=== PATIENT | female | born 1935 | race Hispanic/Latino ===

== ENCOUNTER 2017-04-17 07:53 | Observation (INO) | payer MEDICARE, MEDICAID ==
[~2017-04-17] VITALS: Ht 165.1 cm; Wt 58.0 kg
[~2017-04-17 07:53] MED LIST: ALBUTEROL SUL0.083 % IN; ALBUTEROL2.5 MG/3 M IN; ASA LO-DOSE81 MG OR; ASPIRIN CHEWABL81 MG PO; CIPRO500 MG PO; CIPROFLOXACN500 MG PO; COUMADIN2 MG PO; DARVOCET-N 100100 MG OR; DOXYCYCL HYC100 M3 PO; KEFLEX500 MG PO; LEVAQUIN500 MG PO; LORTAB 5 OR; LORTAB 5/3255 MG PO; MEDDOSEPAK PO; METFORMIN500 M2 PO; PREDNISONE20 MG PO; PRILOSEC OTC20 MG OR; PROAIR HFA IN; PYRIDIUM200 MG PO; ROBITUSS12 OR; ROBITUSSIN AC10 ML PO; ULTRAM50 M1 OR; ULTRAM50 M1 PO; ULTRAM50 MG PO; VENTOLIN HF1 IN; VENTOLIN HFA IN; VICODIN ES1 TAB OR; VICOPROFEN OR; VITAMIN A OR; VITAMIN C500 M1 OR; ZITHROMAX250 MG OR; ZITHROMAX250 MG PO; ZOFRAN ODT4 MG PO; ZPAK PO; [UNRECOGNIZED DRUG - CODE] OR
[2017-04-17 08:46] LABS: URINE BILIRUBIN - DIPSTICK NEGATIVE (NEGATIVE); URINE BLOOD DIPSTICK NEGATIVE (NEGATIVE); URINE COLOR YELLOW; URINE GLUCOSE - DIPSTICK 100 mg/dL (NEGATIVE); URINE KETONE NEGATIVE (NEGATIVE); URINE LEUK ESTERASE NEGATIVE (NEGATIVE); URINE NITRITE - DIPSTICK NEGATIVE (Negative); URINE PROTEIN - DIPSTICK NEGATIVE (NEG-TRACE); URINE SPECIFIC GRAVITY 1.015; URINE UROBILINOGEN - DIPSTICK 0.2 E.U./dL (0.2)
[2017-04-17 08:46] LABS: HEMOGLOBIN 10.3 g/dl (12.0-16.0); IMMATURE GRANULOCYTES 0.6 % (0.0-1.0); MEAN CELL VOLUME 92.2 fL CALC (80.0-100.0); MEAN CORPUSCULAR HGB 28.8 pG CALC (26.0-32.0); MEAN CORPUSCULAR HGB CONC 31.2 g/L CALC (32.0-36.0); NEUT# 4.2 thou/uL (2.00-7.15); RED BLOOD COUNT 3.58 mill/uL (4.20-5.60); RED CELL DISTRI WIDTH 13.6 % (11.5-15.5)
[2017-04-17 09:12] LABS: ALBUMIN 4.2 g/dL (3.2-5.0); ALKALINE PHOSPHATASE 98 u/l (38-126); ANION GAP 15 (6-22 (CALC)); BUN 11 mg/dL (8-23); BUN/CREATININE RATIO 16 (12-20 (CALC)); CALCIUM 9.7 mg/dL (8.4-10.2); CARBON DIOXIDE 26 mmol/l (22-30); CHLORIDE 107 mmol/l (95-108); CREATININE 0.7 mg/dL (0.5-1.0); GFR > 60 ML/MIN (>=60 (CALC)); GFR FOR AFR.AMER. > 60 ML/MIN (>=60 (CALC)); GLUCOSE 158 mg/dL (82-115); LIPASE 71 u/l (23-300); POTASSIUM 3.8 mmol/l (3.5-5.1); SGOT/AST 30 u/l (9-36); SGPT/ALT 30 u/l (11-66); SODIUM 144 mmol/l (137-146); TOTAL PROTEIN 7.4 g/dL (6.3-8.2)
[2017-04-17 09:56] LABS: URINE CLARITY CLEAR
[2017-04-17 11:26] LABS: INFLUENZA A NONE DETECTED (NONE DETECT); INFLUENZA B NONE DETECTED (NONE DETECT)
[2017-04-17] MEDS ORDERED: COUMADIN3 MG PO (13:57)
[2017-04-17] MEDS ORDERED: ASPIRIN LOW DOS81 MG PO (13:58)
[2017-04-17] MEDS ORDERED: ALBUTEROL SUL0.083 % IN (13:59)
[2017-04-17] MEDS ORDERED: TOPROL XL25 MG PO (13:59)
[2017-04-17] MEDS ORDERED: LASIX 20 MG TAB20 MG PO (14:00)
[2017-04-17] MEDS ORDERED: PROAIR HFA108 MCG/AC (14:00)
[2017-04-17] MEDS ORDERED: PROLIA60 MG/ML SC (14:01)
[2017-04-17] MEDS ORDERED: OMEPRAZOLE10 MG PO (14:01)
[2017-04-17] MEDS ORDERED: METFORMIN HCL750 MG PO (14:02)
[2017-04-17] MEDS ORDERED: ATORVASTATIN CA10 MG PO (14:02)
[2017-04-17] MEDS ORDERED: LOSARTAN POT50 MG PO (14:02)
[2017-04-17] MEDS ORDERED: DOXYCYCL HYC100 MG PO (14:03)
[2017-04-17] MEDS ORDERED: HYDROCO/APAP1 TA9 PO (14:03)
[2017-04-17 16:11] VITALS: BP 142/67
[2017-04-17 18:25] VITALS: BP 122/66
[2017-04-18 04:20] VITALS: BP 127/72
[2017-04-18 07:19] LABS: HEMATOCRIT 33.8 % (37.0-47.0); HEMOGLOBIN 10.5 g/dl (12.0-16.0); MEAN CELL VOLUME 91.6 fL CALC (80.0-100.0); MEAN CORPUSCULAR HGB 28.5 pG CALC (26.0-32.0); MEAN CORPUSCULAR HGB CONC 31.1 g/L CALC (32.0-36.0); RED BLOOD COUNT 3.69 mill/uL (4.20-5.60); RED CELL DISTRI WIDTH 13.4 % (11.5-15.5)
[2017-04-18 07:36] LABS: ANION GAP 15 (6-22 (CALC)); BUN 15 mg/dL (8-23); BUN/CREATININE RATIO 21 (12-20 (CALC)); CALCIUM 9.5 mg/dL (8.4-10.2); CARBON DIOXIDE 29 mmol/l (22-30); CHLORIDE 102 mmol/l (95-108); CREATININE 0.7 mg/dL (0.5-1.0); GFR > 60 ML/MIN (>=60 (CALC)); GFR FOR AFR.AMER. > 60 ML/MIN (>=60 (CALC)); GLUCOSE 171 mg/dL (82-115); POTASSIUM 3.9 mmol/l (3.5-5.1); SODIUM 143 mmol/l (137-146)
[2017-04-18 07:52] LABS: INTERNATIONAL NORMALIZED RATIO 1.4 RATIO (0.7-1.3); PROTHROMBIN TIME 15.7 SECONDS (9.0-12.5)
[2017-04-18 08:21] VITALS: BP 147/61
[2017-04-18 14:50] VITALS: BP 117/66
[2017-04-18] MEDS ORDERED: GUAIFENESI100 MG/51 PO (15:20)
[2017-04-18] MEDS ORDERED: PREDNISONE10 MG PO (15:20)
== END 2017-04-18 17:22 | disposition home or self-care (01) ==
LOC: ED 07:53 → ED-I 13:15 → ED 13:41 → MS2 13:42
PROVIDERS: Emergency Medicine; ADMIT Internal Medicine; ATTEND Internal Medicine
DX: J44.0 Chronic obstructive pulmonary disease with (acute) lower respiratory infection (principal); J20.9 Acute bronchitis, unspecified; I12.9 Hypertensive chronic kidney disease with stage 1 through stage 4 chronic kidney disease, or unspecified chronic kidney disease; E11.22 Type 2 diabetes mellitus with diabetic chronic kidney disease; N18.9 Chronic kidney disease, unspecified; I25.10 Atherosclerotic heart disease of native coronary artery without angina pectoris; I48.91 Unspecified atrial fibrillation; Z79.01 Long term (current) use of anticoagulants; Z95.1 Presence of aortocoronary bypass graft; Z86.73 Personal history of transient ischemic attack (TIA), and cerebral infarction without residual deficits

== ENCOUNTER 2017-05-09 11:01 | Emergency (ER) | payer MEDICARE, MEDICAID ==
[~2017-05-09] VITALS: Ht 165.1 cm; Wt 50.0 kg
[~2017-05-09 11:01] MED LIST changes: +ASPIRIN LOW DOS81 MG PO; +ATORVASTATIN CA10 MG PO; +COUMADIN3 MG PO; +DOXYCYCL HYC100 MG PO; +GUAIFENESI100 MG/51 PO; +HYDROCO/APAP1 TA9 PO; +LASIX 20 MG TAB20 MG PO; +LOSARTAN POT50 MG PO; +METFORMIN HCL750 MG PO; +OMEPRAZOLE10 MG PO; +PREDNISONE10 MG PO; +PROAIR HFA108 MCG/AC IN; +PROLIA60 MG/ML SC; +TOPROL XL25 MG PO
[2017-05-09] MEDS ORDERED: COUMADIN1 MG PO (11:37)
[2017-05-09] MEDS ORDERED: LORTAB 1010 MG PO (12:56)
[2017-05-09] MEDS ORDERED: FLEXERIL PO (12:56)
[2017-05-09 13:00] VITALS: BP 122/78
== END 2017-05-09 13:00 | disposition home or self-care (01) ==
LOC: ED 11:01
DX: M47.817 Spondylosis without myelopathy or radiculopathy, lumbosacral region (principal); M54.31 Sciatica, right side

== ENCOUNTER 2017-06-24 17:18 | Emergency (ER) | payer MEDICARE, MEDICAID ==
[~2017-06-24] VITALS: Ht 165.1 cm; Wt 62.7 kg
[~2017-06-24 17:18] MED LIST changes: +COUMADIN1 MG PO; +FLEXERIL PO; +LORTAB 1010 MG PO
[2017-06-24] MEDS ORDERED: IBUPROFEN600 MG PO (19:57)
[2017-06-24 20:19] VITALS: BP 123/51
== END 2017-06-24 20:20 | disposition home or self-care (01) ==
LOC: ED 17:18
DX: S22.31XA Fracture of one rib, right side, initial encounter for closed fracture (principal); S80.211A Abrasion, right knee, initial encounter; E11.22 Type 2 diabetes mellitus with diabetic chronic kidney disease; I12.9 Hypertensive chronic kidney disease with stage 1 through stage 4 chronic kidney disease, or unspecified chronic kidney disease; N18.9 Chronic kidney disease, unspecified; W01.0XXA Fall on same level from slipping, tripping and stumbling without subsequent striking against object, initial encounter; Y93.E2 Activity, laundry; Y92.89 Other specified places as the place of occurrence of the external cause; Z86.73 Personal history of transient ischemic attack (TIA), and cerebral infarction without residual deficits; Z95.1 Presence of aortocoronary bypass graft

== ENCOUNTER 2017-10-20 09:58 | Observation (INO) | payer MEDICARE, MEDICAID ==
[~2017-10-20] VITALS: Ht 165.1 cm; Wt 51.9 kg
[~2017-10-20 09:58] MED LIST changes: +IBUPROFEN600 MG PO
[2017-10-20 10:46] LABS: HEMATOCRIT 31.1 % (37.0-47.0); HEMOGLOBIN 9.5 g/dl (12.0-16.0); IMMATURE GRANULOCYTES 0.2 % (0.0-1.0); MEAN CELL VOLUME 92.3 fL CALC (80.0-100.0); MEAN CORPUSCULAR HGB 28.2 pG CALC (26.0-32.0); MEAN CORPUSCULAR HGB CONC 30.5 g/L CALC (32.0-36.0); NEUT# 4.17 thou/uL (2.00-7.15); RED BLOOD COUNT 3.37 mill/uL (4.20-5.60); RED CELL DISTRI WIDTH 13.6 % (11.5-15.5)
[2017-10-20] MEDS ORDERED: NORCO1 TA1 PO (10:56)
[2017-10-20 11:03] LABS: ALBUMIN 4.4 g/dL (3.2-5.0); ALKALINE PHOSPHATASE 114 u/l (38-126); ANION GAP 14 (6-22 (CALC)); BILIRUBIN, TOTAL 0.9 mg/dL (0.0-1.4); BUN 16 mg/dL (8-23); BUN/CREATININE RATIO 26 (12-20 (CALC)); CARBON DIOXIDE 33 mmol/l (22-30); CHLORIDE 102 mmol/l (95-108); CREATININE 0.6 mg/dL (0.5-1.0); GFR > 60 ML/MIN (>=60 (CALC)); GFR FOR AFR.AMER. > 60 ML/MIN (>=60 (CALC)); SGOT/AST 26 u/l (9-36); SGPT/ALT 34 u/l (11-66); SODIUM 145 mmol/l (137-146); TOTAL PROTEIN 8.3 g/dL (6.3-8.2)
[2017-10-20 11:15] LABS: MYOGLOBIN 36 ng/mL (0 - 62)
[2017-10-20 11:34] LABS: URINE BILIRUBIN - DIPSTICK NEGATIVE (NEGATIVE); URINE BLOOD DIPSTICK MODERATE (NEGATIVE); URINE COLOR YELLOW; URINE GLUCOSE - DIPSTICK NEGATIVE (NEGATIVE); URINE KETONE NEGATIVE (NEGATIVE); URINE LEUK ESTERASE NEGATIVE (NEGATIVE); URINE PROTEIN - DIPSTICK NEGATIVE (NEG-TRACE); URINE SPECIFIC GRAVITY <=1.005; URINE UROBILINOGEN - DIPSTICK 0.2 E.U./dL (0.2)
[2017-10-20 11:35] LABS: URINE CLARITY CLEAR
[2017-10-20 11:42] LABS: URINE NITRITE - DIPSTICK NEGATIVE (Negative)
[2017-10-20 13:26] LABS: PROTHROMBIN TIME 22.2 SECONDS (9.0-12.5)
[2017-10-20 14:26] VITALS: BP 152/65
[2017-10-20 18:37] LABS: INTERNATIONAL NORMALIZED RATIO 1.9 RATIO (0.7-1.3); PROTHROMBIN TIME 21.7 SECONDS (9.0-12.5)
[2017-10-20 19:15] VITALS: BP 122/55
[2017-10-20] MEDS ORDERED: PROLIA60 MG/ML IM (20:05)
[2017-10-21 00:50] VITALS: BP 137/68
[2017-10-21 04:12] VITALS: BP 121/63
[2017-10-21 04:49] LABS: HEMATOCRIT 32.9 % (37.0-47.0); HEMOGLOBIN 10.2 g/dl (12.0-16.0); IMMATURE GRANULOCYTES 0.4 % (0.0-1.0); MEAN CELL VOLUME 90.4 fL CALC (80.0-100.0); NEUT# 4.13 thou/uL (2.00-7.15); RED BLOOD COUNT 3.64 mill/uL (4.20-5.60); RED CELL DISTRI WIDTH 13.5 % (11.5-15.5)
[2017-10-21 04:52] LABS: ANION GAP 11 (6-22 (CALC)); BUN 18 mg/dL (8-23); BUN/CREATININE RATIO 26 (12-20 (CALC)); CARBON DIOXIDE 35 mmol/l (22-30); CHLORIDE 99 mmol/l (95-108); CREATININE 0.7 mg/dL (0.5-1.0); GFR > 60 ML/MIN (>=60 (CALC)); GFR FOR AFR.AMER. > 60 ML/MIN (>=60 (CALC)); MAGNESIUM 1.9 mg/dL (1.6-2.3); SODIUM 141 mmol/l (137-146)
[2017-10-21 08:00] VITALS: BP 126/54
[2017-10-21 11:17] VITALS: BP 140/63
[2017-10-21 15:04] VITALS: BP 128/55
[2017-10-21 19:25] VITALS: BP 120/64
[2017-10-22 00:07] VITALS: BP 125/55
[2017-10-22 04:06] VITALS: BP 107/51
[2017-10-22 04:51] LABS: HEMATOCRIT 36.2 % (37.0-47.0); HEMOGLOBIN 11.3 g/dl (12.0-16.0); MEAN CELL VOLUME 88.9 fL CALC (80.0-100.0); MEAN CORPUSCULAR HGB 27.8 pG CALC (26.0-32.0); MEAN CORPUSCULAR HGB CONC 31.2 g/L CALC (32.0-36.0); RED BLOOD COUNT 4.07 mill/uL (4.20-5.60); RED CELL DISTRI WIDTH 13.5 % (11.5-15.5)
[2017-10-22 05:10] LABS: ANION GAP 16 (6-22 (CALC)); BUN 27 mg/dL (8-23); BUN/CREATININE RATIO 37 (12-20 (CALC)); CARBON DIOXIDE 33 mmol/l (22-30); CHLORIDE 97 mmol/l (95-108); CREATININE 0.7 mg/dL (0.5-1.0); GFR > 60 ML/MIN (>=60 (CALC)); GFR FOR AFR.AMER. > 60 ML/MIN (>=60 (CALC)); POTASSIUM 3.9 mmol/l (3.5-5.1); SODIUM 142 mmol/l (137-146)
[2017-10-22 05:11] LABS: INTERNATIONAL NORMALIZED RATIO 1.6 RATIO (0.7-1.3); PROTHROMBIN TIME 18.1 SECONDS (9.0-12.5)
[2017-10-22 08:03] VITALS: BP 122/63
[2017-10-22 11:10] VITALS: BP 107/50
== END 2017-10-22 13:44 | disposition home or self-care (01) ==
LOC: ED 09:58 → ED-I 12:30 → ED 13:32 → MS2 13:33
PROVIDERS: Emergency Medicine; Nurse Practitioner Family; ADMIT Internal Medicine; ATTEND Internal Medicine
PROC: 3E0234Z Introduction of Serum, Toxoid and Vaccine into Muscle, Percutaneous Approach (ICD-10-PCS; principal; 2017-10-22)
DX: I11.0 Hypertensive heart disease with heart failure (principal); I50.9 Heart failure, unspecified; J44.1 Chronic obstructive pulmonary disease with (acute) exacerbation; E11.9 Type 2 diabetes mellitus without complications; I48.0 Paroxysmal atrial fibrillation; R09.02 Hypoxemia; R06.89 Other abnormalities of breathing; I25.10 Atherosclerotic heart disease of native coronary artery without angina pectoris; D64.9 Anemia, unspecified; Z95.1 Presence of aortocoronary bypass graft; Z86.73 Personal history of transient ischemic attack (TIA), and cerebral infarction without residual deficits; Z95.2 Presence of prosthetic heart valve; Z79.01 Long term (current) use of anticoagulants; E78.5 Hyperlipidemia, unspecified; Z87.891 Personal history of nicotine dependence; Z23 Encounter for immunization

== ENCOUNTER → 2018-06-26 | Outpatient (REF) | payer MEDICARE, MEDICAID ==
[~2018-06-26] MED LIST changes: +NORCO1 TA1 PO; +PROLIA60 MG/ML IM
[2018-06-26 10:50] LABS: HEMATOCRIT 29.1 % (37.0-47.0); HEMOGLOBIN 8.4 g/dl (12.0-16.0); IMMATURE GRANULOCYTES 0.4 % (0.0-5.0); MEAN CELL VOLUME 88.7 fL CALC (80.0-100.0); MEAN CORPUSCULAR HGB 25.6 pG CALC (26.0-32.0); MEAN CORPUSCULAR HGB CONC 28.9 g/L CALC (32.0-36.0); NEUT# 3.06 thou/uL (2.00-7.15); RED BLOOD COUNT 3.28 mill/uL (4.20-5.60); RED CELL DISTRI WIDTH 15.9 % (11.5-15.5)
[2018-06-26 11:02] LABS: ALBUMIN 4.1 g/dL (3.2-5.0); ALKALINE PHOSPHATASE 78 u/l (38-126); ANION GAP 12 (6-22 (CALC)); BILIRUBIN, TOTAL 0.6 mg/dL (0.0-1.4); BUN 18 mg/dL (8-23); BUN/CREATININE RATIO 21 (12-20 (CALC)); CALCULATED LDLCHOLESTEROL 53 mg/dL (62-129 (CALC)); CARBON DIOXIDE 27 mmol/l (22-30); CHLORIDE 109 mmol/l (95-108); CHOLESTEROL HDL RATIO 2.3 (<4.4 (CALC)); CREATININE 0.8 mg/dL (0.5-1.0); GFR > 60 ML/MIN (>=60 (CALC)); GFR FOR AFR.AMER. > 60 ML/MIN (>=60 (CALC)); HDL CHOLESTEROL 59 mg/dL (>=40); POTASSIUM 4.4 mmol/l (3.5-5.1); SGOT/AST 19 u/l (9-36); SODIUM 143 mmol/l (137-146); TOTAL CHOLESTEROL 133 mg/dl (0-199); TOTAL PROTEIN 7.1 g/dL (6.3-8.2); TOTAL TRIGLYCERIDES 103 mg/dl (30-149); VLDL CHOLESTROL 21 mg/dl (0-48 (CALC))
[2018-06-26 11:28] LABS: TSH, 3RD GENERATION 1.75 uIU/mL (0.47 - 4.68)
== END | disposition home or self-care (01) ==
LOC: LAB 09:09
PROVIDERS: ATTEND Internal Medicine
DX: E11.29 Type 2 diabetes mellitus with other diabetic kidney complication (principal); I51.9 Heart disease, unspecified; D63.8 Anemia in other chronic diseases classified elsewhere

== ENCOUNTER 2018-10-12 08:05 | Inpatient (IN) | payer MEDICARE, MEDICAID ==
[~2018-10-12] VITALS: Ht 165.1 cm; Wt 56.0 kg
[2018-10-12] VITALS (13 sets, daily range): BP systolic 87–136; BP diastolic 49–92
--- NOTE | 2018-10-12 08:05 | NUR ---
PT TO ROOM VIA WHEELCHAIR FOR BEDSIDE TRIAGE.
--- NOTE | 2018-10-12 08:28 | NUR ---
AT BEDSIDE. VERBAL ORDER TO GIVE 10 MG OF CARDIZEM IV AT THIS TIME. PATIENT HR 90 AFTER GIVING 10 MG OF CARDIZEM IV. VERBAL ORDER FROM TO HOLD ADDITIONAL 10 MG OF CARDIZEM IV. PATIENT TOLERATED WELL. WILL CONTINUE TO MONITOR.
[2018-10-12 08:29] LABS: HEMATOCRIT 35.7 % (37.0-47.0); HEMOGLOBIN 10.7 g/dl (12.0-16.0); IMMATURE GRANULOCYTES 0.4 % (0.0-5.0); MEAN CELL VOLUME 87.1 fL CALC (80.0-100.0); MEAN CORPUSCULAR HGB 26.1 pG CALC (26.0-32.0); NEUT# 3.86 thou/uL (2.00-7.15); RED BLOOD COUNT 4.1 mill/uL (4.20-5.60); RED CELL DISTRI WIDTH 20.4 % (11.5-15.5)
[2018-10-12 08:45] LABS: INTERNATIONAL NORMALIZED RATIO 2.9 RATIO (0.7-1.3); PROTHROMBIN TIME 30.2 SECONDS (9.0-12.5)
[2018-10-12 08:48] LABS: ANION GAP 13 (6-22 (CALC)); BUN 21 mg/dL (8-23); BUN/CREATININE RATIO 21 (12-20 (CALC)); CARBON DIOXIDE 26 mmol/l (22-30); CHLORIDE 108 mmol/l (95-108); GFR 53 ML/MIN (>=60 (CALC)); GFR FOR AFR.AMER. > 60 ML/MIN (>=60 (CALC)); SODIUM 143 mmol/l (137-146); TOTAL PROTEIN 7.2 g/dL (6.3-8.2)
[2018-10-12 08:59] LABS: MYOGLOBIN 58 ng/mL (0 - 62)
[2018-10-12 09:03] LABS: ALKALINE PHOSPHATASE 121 u/l (38-126); BILIRUBIN, TOTAL 1.5 mg/dL (0.0-1.4); SGOT/AST 38 u/l (9-36)
--- NOTE | 2018-10-12 09:25 | NUR ---
MEDREC COMPLETED WITH MEDICATION LIST PROVIDED BY PATIENT.
[2018-10-12] MEDS ORDERED: PROAIR HFA IN (09:30)
--- NOTE | 2018-10-12 09:30 | NUR ---
AT BEDSIDE TO DISCUSS RESULTS AND ADMIT.
[2018-10-12] MEDS ORDERED: DOXYCYCL HYC100 MG PO (09:32)
--- NOTE | 2018-10-12 09:50 | NUR ---
BEDSIDE REPORT GIVEN TO ROBBY RAYA. CARE RELINQUISHED.
--- NOTE | 2018-10-12 12:43 | NUR ---
PT ADMITTED TO ICU BED 5 VIA STRETCHER FROM E.. PT ABLE TO STAND AND TRANSFER FROM STRETCHER TO BED WITH MIN ASSIST, ADMISSION ASSESSMENT COMPLETED SEE INTERVENTIONS, IV ACCESSES NOTED IN L FA AND LAC, CARDIZEM GTT INFUSING IN LAC AT 2.5 MG/HR WITHOUT INCIDENT, VS STABLE PT AFEBRILE, SKIN WARM DRY AND INTACT WITH NO BREAKDOWN NOTED, PT WEARING BRIEF, DAUGHTER STATES SHE WEARS ONE ALL THE TIME RELATED TO FREQUENCY AND INCONTINENCE. NO EDEMA NOTED LUNGS DIMINSHED WITH WHEEZES NOTED IN BASES, NO COUGH HEARD. ABD SOFT AND BS ACTIVE WITH LAST BM THIS AM PER PT. COMFORT MEASURES PROVIDED, ALL MONITORING EQUIPMENT AXPLAINED PRIOR TO APPLICATION, SAFETY MEASURES INTRODUCED, WILL CONTINUE TO MONITOR, CALL RAMIREZ WITHIN REACH
--- NOTE | 2018-10-12 12:53 | NUR ---
PT TAKEN TO ICU-5 WITHOUT INCIDENT.
--- NOTE | 2018-10-12 13:45 | NUR ---
PT RESTING IN BEDM WATCHING TELEVISION, EASILY VISIBLE FROM NURSES STATION FOR SAFETY, WILL CONTINUE TO MONITOR.
--- NOTE | 2018-10-12 14:38 | NUR ---
PT SATS MAINTAINED 88-92 ON ROOM AIR, PER DAUGHTER PT WEARS O2 AT HOME AT HS, AND HERE LATELY HAS BEEN WEARING IT MORE OFTEN RELATED TO SOB. AT THIS TIME PLACED ON NC 2L WITH SATS QUICKLY IMPROVING TO 95-97%, WILL CONTINUE TO MONITOR.
--- NOTE | 2018-10-12 15:28 | NUR ---
AT BEDSIDE AND DISCUSSED PLAN OF CARE. ALL QUESTIONS ANSWERED.
--- NOTE | 2018-10-12 16:25 | NUR ---
daughter at bedside assist pt with brief change, bathroom visit and danyelle care. Pt HR increases with minimai exertion to 140-150's but returns to 90-110 with minimal rest. Call mccloud within reach.
--- NOTE | 2018-10-12 17:30 | NUR ---
insulin coverage given as ordered, pt offers no complaints. Angelic Frias APRN here to consult for as ordered. Meal set up assist provided, tele reading afib rate controlled, no complaints of pain or discomfort at this time, will continue to monitor.
--- NOTE | 2018-10-12 18:55 | NUR ---
PATIENT ASSISTED STANDBY TO RESTROOM. NO DIFFICULTY WALKING NOTED, URINE CLEAR AND YELLOW. ON 2 L/MIN NC. FULL NURSING ASSESSMENT COMPLETED. LAC 22 AND LFA 20 IV'S ARE INTACT AND FLUSHING. WEARS A DISPOSABLE BRIEF FOR STRESS INCONTINENCE. AFIB IN TELE, HR RAISES UP WHEN SHE IS WALKING BUT DOES NOT SUSTAIN. ALERT AND ORIENTED X4. [place], WEARS HEARING AIDS, HAS R-EAR ON AND L-EAR IS CHARGING BY SINK. EDUCATED EMPLOYMENT INTERVIEWER LIGHT SYSTEM. EDUCATED ON MEDICATIONS FOR TONIGHT, POC. REPORTS NO PAIN AT THIS TIME. AFEBRILE. CALL LIGHT WITHIN REACH.
--- NOTE | 2018-10-12 19:50 | NUR ---
DAUGHTER AT BEDSIDE TO DROP OFF PATIENT'S PHONE EMERGENCY TECHNICIAN.
--- NOTE | 2018-10-12 21:10 | NUR ---
RT IN ROOM FOR BR. TX. PATIENT'S BS CHECKED 214. CALL LIGHT WITHIN REACH.
--- NOTE | 2018-10-12 23:20 | NUR ---
PATIENT ASSISTED STANDBY TO RESTROOM. SAFELY TRANSFERRED BACK TO BED. ON 2L/MIN NC. PATIENT'S HR RAISES UP WITH EXERTION, ONCE SHE IS BACK IN BED AND NOT MOVING HR W/I NORMAL RANGES. CALL LIGHTN W/I REACH.
[2018-10-13] VITALS (59 sets, daily range): BP systolic 93–169; BP diastolic 50–95
--- NOTE | 2018-10-13 | NUR ---
PATIENT RESTING WITH EYES CLOSED. NO ACUTE DISTRESS SHOWN. ON NC 2 L/MIN. CALL LIGHT W/I REACH.
--- NOTE | 2018-10-13 00:26 | NUR ---
ORDERS TO CHECK BS EVERY HOUR, CLARIFIED WITH DR RODRIGUEZ AND ONLY WANTS ACHS.
--- NOTE | 2018-10-13 02:15 | NUR ---
PATIENT AWAKE, REQUESTS SOMETHING TO EAT, UNSALTED CRACKERS GIVEN. NOW WATCHING TV. NO ACUTE DISTRESS NOTED. CALL LIGHT W/I REACH.
[2018-10-13 05:34] LABS: HEMATOCRIT 32.5 % (37.0-47.0); IMMATURE GRANULOCYTES 0.2 % (0.0-5.0); MEAN CELL VOLUME 87.4 fL CALC (80.0-100.0); MEAN CORPUSCULAR HGB 26.9 pG CALC (26.0-32.0); MEAN CORPUSCULAR HGB CONC 30.8 g/L CALC (32.0-36.0); NEUT# 3.44 thou/uL (2.00-7.15); RED BLOOD COUNT 3.72 mill/uL (4.20-5.60); RED CELL DISTRI WIDTH 20.3 % (11.5-15.5)
[2018-10-13 05:46] LABS: INTERNATIONAL NORMALIZED RATIO 2.7 RATIO (0.7-1.3); PROTHROMBIN TIME 27.6 SECONDS (9.0-12.5)
[2018-10-13 05:56] LABS: ALBUMIN 3.6 g/dL (3.2-5.0); ALKALINE PHOSPHATASE 104 u/l (38-126); AMYLASE 62 u/l (30-110); ANION GAP 14 (6-22 (CALC)); BUN 20 mg/dL (8-23); BUN/CREATININE RATIO 21 (12-20 (CALC)); CARBON DIOXIDE 26 mmol/l (22-30); CHLORIDE 106 mmol/l (95-108); GFR 53 ML/MIN (>=60 (CALC)); GFR FOR AFR.AMER. > 60 ML/MIN (>=60 (CALC)); LIPASE 163 u/l (23-300); POTASSIUM 4.5 mmol/l (3.5-5.1); SGOT/AST 28 u/l (9-36); SODIUM 141 mmol/l (137-146); TOTAL PROTEIN 6.6 g/dL (6.3-8.2)
--- NOTE | 2018-10-13 06:00 | NUR ---
PATIENT ASSISTED TO RESTROOM, SHE WASHED HER FACE. NOW SITTING ON BEDSIDE CHAIR, HEART RATE INCREASES TO 120'S WITH EXERTION, NO SOB NOTED. PAIN MEDICATION GIVEN PER REQUEST. CALL LIGHT WITHIN REACH.
[2018-10-13 06:22] LABS: BILIRUBIN, TOTAL 0.8 mg/dL (0.0-1.4)
--- NOTE | 2018-10-13 06:30 | NUR ---
PATIENT SATS 90-92% ON ROOM AIR, PLACED HER ON 2L NC AGAIN.
--- NOTE | 2018-10-13 06:49 | NUR ---
called and spoke to dr flores to notify patient's heart rate sustains 120's -130's, dr flores gave orders to call tie cutter.
--- NOTE | 2018-10-13 06:52 | NUR ---
DR RODRIGUEZ CALLED. CARDIOLOGY NOT OUTSIDE PLANT SUPERVISOR AT THIS TIME. HR CURRENTLY 148. ORDERS RECEIVED TO PLACE PATIENT BACK ON CARDIZEM DRIP AND CONSULT CARDIOLOGY AFTER 0800.
--- NOTE | 2018-10-13 06:55 | NUR ---
PT PLACED BACK ON CARDIZEM DRIP PER TITRATION CHARTING
--- NOTE | 2018-10-13 07:00 | NUR ---
PT RESTING IN BED AWAKE. PT IS ALERT AND ORIENTED X3. SHIFT ASSESSMENT COMPLETED AT THIS TIME. IV PATNET X2. CALL LIGHTY IN REACH. WILL CONTINUE TO MONITOR.
--- NOTE | 2018-10-13 07:45 | NUR ---
PT SET UP FOR AM MEAL
--- NOTE | 2018-10-13 08:30 | NUR ---
SPOKE TO MADHU BIGGS WITH CARDIOLOGY AND UPDATED ON PATIENT STATUS. AWAITING NEW ORDERS.
[2018-10-13 08:40] LABS: URINE BILIRUBIN - DIPSTICK NEGATIVE (NEGATIVE); URINE BLOOD DIPSTICK NEGATIVE (NEGATIVE); URINE COLOR YELLOW; URINE GLUCOSE - DIPSTICK 250 mg/dL (NEGATIVE); URINE KETONE NEGATIVE (NEGATIVE); URINE LEUK ESTERASE NEGATIVE (NEGATIVE); URINE NITRITE - DIPSTICK NEGATIVE (Negative); URINE PROTEIN - DIPSTICK TRACE mg/dL (NEG-TRACE); URINE SPECIFIC GRAVITY 1.015; URINE UROBILINOGEN - DIPSTICK 0.2 E.U./dL (0.2)
--- NOTE | 2018-10-13 10:00 | NUR ---
PT SITTING UP IN BED WATCHING TV. RESP ARE EVEN AND UNLABORED. HR 120-140S ON MONITOR. FAMILY AT BEDSIDE. CALL LIGHT IN REACH. WILL CONTINUE TO MONITOR.
--- NOTE | 2018-10-13 10:20 | NUR ---
DR RODRIGUEZ AT BEDSIDE AT THIS TIME TO DISCUSS PLAN OF CARE
--- NOTE | 2018-10-13 10:35 | NUR ---
PT TO CT VIA WHEELCHAIR IN STABLE CONDITITON
--- NOTE | 2018-10-13 10:50 | NUR ---
PT RETURNED FROM CT IN STABLE CONDITION
--- NOTE | 2018-10-13 11:30 | NUR ---
PT SET UP FOR NOON MEAL
--- NOTE | 2018-10-13 11:48 | NUR ---
CARDIOLOGY NOTIFIED OF HEART RATE.
--- NOTE | 2018-10-13 11:54 | NUR ---
CARDIZEM STARTED PER TITRATION CHARTING PER MADHU NO [facility] CARDIOLOGY.
--- NOTE | 2018-10-13 12:21 | NUR ---
MADHU BIGGS AT BEDSIDE AT THIS TIME
--- NOTE | 2018-10-13 14:00 | NUR ---
PT RESTING IN BED AWAKE. RESP ARE EVEN AND UNLABORED. NO DISTRESS NOTED. CALL LIGHT IN REACH. WILL CONTINUE TO MONITOR
--- NOTE | 2018-10-13 16:00 | NUR ---
PT RESTING IN BED AWAKE AT THIS TIME. RESP ARE EVEN AND UNLABORED. NO DISTRESS NOTED. CALL LIGHT IN REACH. WILL CONTINUE TO MONITOR.
--- NOTE | 2018-10-13 17:43 | NUR ---
PT SET UP FOR PM MEAL
--- NOTE | 2018-10-13 19:00 | NUR ---
patient assisted standby to restroom. urine yellow and clear. no sob noted. decided to sit on bedside chair. placed on 2 l/min nasal cannula. head to toe nursing assessment performed. lac 20 g and lfa 22 g intact and flushing, cardizem drip infusing at 5 mg/hr, heart rate in the 80's, afib. patient alert and oriented x4, hard of hearing, has r ear hearing aid on. she walks w/o difficulty, i have educated her police liaison light system and call when she needs assistance especially to get up. afebrile. educated on poc for tonight. call light within reach.
--- NOTE | 2018-10-13 22:14 | NUR ---
patient laying with eyes closed. cardizem drip on hold, heart rate between 50's-60's, bp 93/66, afib. call light within reach.
--- NOTE | 2018-10-13 22:39 | NUR ---
patient up to restroom. safely transferred back to bed. call light within reach.
[2018-10-14] VITALS (21 sets, daily range): BP systolic 104–136; BP diastolic 46–96
--- NOTE | 2018-10-14 | NUR ---
patient resting with eyes closed. no distress noted. on 2l/min nc. call light within reach.
--- NOTE | 2018-10-14 01:22 | NUR ---
patient up to bedside commode, reminded her to use call light for assistance. safely transferred back to bed. call light within reach.
--- NOTE | 2018-10-14 02:23 | NUR ---
patient given tylenol for complaints of shoulder pain.
--- NOTE | 2018-10-14 03:37 | NUR ---
patient requests a snack and juice, fruit and juice given to patient, she is awake and alert watching tv.
[2018-10-14 05:41] LABS: HEMATOCRIT 31.7 % (37.0-47.0); HEMOGLOBIN 9.6 g/dl (12.0-16.0); IMMATURE GRANULOCYTES 0.7 % (0.0-5.0); MEAN CELL VOLUME 87.8 fL CALC (80.0-100.0); MEAN CORPUSCULAR HGB 26.6 pG CALC (26.0-32.0); MEAN CORPUSCULAR HGB CONC 30.3 g/L CALC (32.0-36.0); NEUT# 8.29 thou/uL (2.00-7.15); RED BLOOD COUNT 3.61 mill/uL (4.20-5.60); RED CELL DISTRI WIDTH 20.6 % (11.5-15.5)
[2018-10-14 05:53] LABS: INTERNATIONAL NORMALIZED RATIO 2.8 RATIO (0.7-1.3)
--- NOTE | 2018-10-14 06:00 | NUR ---
PATIENT AWAKE, ALERT, WATCHING TV, WARM WASH CLOTH GIVEN PER REQUEST TO WASH HER FACE. ON 2 L/MIN NC. NO ACUTE DISTRESS NOTED. CALL LIGHT WITHIN REACH.
[2018-10-14 06:01] LABS: ALBUMIN 3.8 g/dL (3.2-5.0); ALKALINE PHOSPHATASE 92 u/l (38-126); BILIRUBIN, TOTAL 0.6 mg/dL (0.0-1.4); BUN 21 mg/dL (8-23); BUN/CREATININE RATIO 25 (12-20 (CALC)); CARBON DIOXIDE 24 mmol/l (22-30); CHLORIDE 104 mmol/l (95-108); CREATININE 0.8 mg/dL (0.5-1.0); GFR > 60 ML/MIN (>=60 (CALC)); GFR FOR AFR.AMER. > 60 ML/MIN (>=60 (CALC)); MAGNESIUM 1.9 mg/dL (1.6-2.3); SGOT/AST 25 u/l (9-36); SODIUM 139 mmol/l (137-146); TOTAL PROTEIN 6.7 g/dL (6.3-8.2)
[2018-10-14 06:05] LABS: ANION GAP 16 (6-22 (CALC)); POTASSIUM 5.3 mmol/l (3.5-5.1)
--- NOTE | 2018-10-14 07:00 | NUR ---
PT RESTING IN BED AWAKE. PT IS ALERT AND ORIENTED X3. SHIFT ASSESSMENT COMPLETED AT THIS TIME. IV PATENT X2. CALL LIGHT IN REACH WILL CONINUE TO MONITOR.
--- NOTE | 2018-10-14 07:15 | NUR ---
PT ASSISTED TO BSC AT THIS TIME TO VOID THEN ASSISTED WITH AM CARE. LINENS CHANGED AND ASSISTED TO SIT UP IN CHAIR.
--- NOTE | 2018-10-14 07:39 | NUR ---
PT ASSISTED WITH SET UP OF AM MEAL AT THIS TIME
--- NOTE | 2018-10-14 10:00 | NUR ---
DR RODRIGUEZ AT BEDSIDE TO DISCUSS PLAN OF CARE WITH PATIENT AND FAMILY
--- NOTE | 2018-10-14 11:00 | NUR ---
MULTIPLE FAMILY MEMBERS AT BEDSIDE AT THIS TIME. DAUGHTER BROUGHT IN [place]ON[place] AT THIS TIME WELL.
--- NOTE | 2018-10-14 11:35 | NUR ---
MADHU BIGGS AT BEDSIDE AT THIS TIME
--- NOTE | 2018-10-14 11:36 | NUR ---
RADIOLOGY AT BEDSIDE TO COMPLETE ULTRASOUND AT THIS TIME.
--- NOTE | 2018-10-14 11:55 | NUR ---
PT SET UP FOR NOON MEAL AT THIS TIME
--- NOTE | 2018-10-14 12:44 | NUR ---
ACCOUNT DEVELOPMENT REPRESENTATIVE AT BEDSIDE TO COMPLETE ECHO AT THIS TIME
--- NOTE | 2018-10-14 14:12 | NUR ---
PT SITTING UP IN CHAIR WATCHING TV AT THIS TIME. RESP ARE EVEN AND UNLABORED. NO DISTRESS NOTED. CALL LIGHT IN REACH.. WILL CONTINUE TO MONITOR.
--- NOTE | 2018-10-14 15:44 | NUR ---
PATIENT PULLED OFF LEADS. PATIENT ASSISTED BACK TO BED AND LEADS BACK IN PLACE
--- NOTE | 2018-10-14 17:27 | NUR ---
PT SET UP FOR PM MEAL
--- NOTE | 2018-10-14 18:32 | NUR ---
PT STANDING UP IN ROOM. RESP ARE EVEN AND UNLABORED. NO DISTRESS NOTED. CALL LIGHT IN REACH. WILL CONTINUE TO MONITOR.
--- NOTE | 2018-10-14 18:50 | NUR ---
BEDSIDE REPORT RECEIVED FROM ROBBY TOM.
--- NOTE | 2018-10-14 19:20 | NUR ---
ASSESSMENT COMPLETED. PT AMBULATING IN ROOM; FIDGETING WITH WIRES AND MAKING/UNMAKING HER BED. HEART RATE WHILE UP IS IN THE 140'S. ENCOURAGED TO REST. PLAN OF CARE REVIEWED. PT ENCOURAGED TO VERBALIZE CONCERNS. STATES UNDERSTANDING. SAFETY MEASURES IN PLACE. CALL LIGHT WITHIN REACH.
--- NOTE | 2018-10-14 19:55 | NUR ---
DENIES PAIN. RESPIRATIONS EVEN AND UNLABORED ON ROOM AIR.
--- NOTE | 2018-10-14 20:47 | NUR ---
RT AT BEDSIDE FOR BREATHING TREATMENT. PT UP TO BSC INDEPENDENTLY TO VOID.
--- NOTE | 2018-10-14 21:37 | NUR ---
LORTAB ADMINSITERED WITH HS MEDICATIONS FOR C/O 10/21 LEFT SHOULDER PAIN. ICE PACK ALSO APPLIED. ACCU CHECK 250. NO OTHER REQUESTS OR CONCERNS AT THIS TIME.
[2018-10-15] VITALS (23 sets, daily range): BP systolic 92–147; BP diastolic 44–81
--- NOTE | 2018-10-15 00:21 | NUR ---
PT UP TO USE BATHROOM; HEART RATE INCREASED INTO THE 140'S DURING ACTIVITY AND RETURNS TO THE 90'S AND 100'S DURING REST. OTHER VS STABLE. IV SITES APPEAR HEALTHY AND FLUSH. PT HARD OF HEARING. VOICES TO NEEDS AT THIS TIME.
--- NOTE | 2018-10-15 02:20 | NUR ---
PT ASLEEP WITH NO SIGNS OF DISTRESS. RESPIRATIONS EVEN AND UNLABORED ON ROOM AIR. SAFETY MEASURES IN PLACE. CALL LIGHT WITHIN REACH.
--- NOTE | 2018-10-15 04:51 | NUR ---
LAB AT BEDSIDE.
--- NOTE | 2018-10-15 05:16 | NUR ---
RT AT BEDSIDE FOR BREATHING TREATMENT.
[2018-10-15 05:18] LABS: HEMATOCRIT 34.1 % (37.0-47.0); HEMOGLOBIN 10.3 g/dl (12.0-16.0); IMMATURE GRANULOCYTES 0.5 % (0.0-5.0); MEAN CELL VOLUME 88.6 fL CALC (80.0-100.0); MEAN CORPUSCULAR HGB 26.8 pG CALC (26.0-32.0); MEAN CORPUSCULAR HGB CONC 30.2 g/L CALC (32.0-36.0); NEUT# 6.71 thou/uL (2.00-7.15); RED BLOOD COUNT 3.85 mill/uL (4.20-5.60); RED CELL DISTRI WIDTH 20.8 % (11.5-15.5)
[2018-10-15 05:32] LABS: PROTHROMBIN TIME 30.9 SECONDS (9.0-12.5)
[2018-10-15 05:36] LABS: ALBUMIN 4.1 g/dL (3.2-5.0); ALKALINE PHOSPHATASE 94 u/l (38-126); BILIRUBIN, TOTAL 0.7 mg/dL (0.0-1.4); BUN 21 mg/dL (8-23); BUN/CREATININE RATIO 28 (12-20 (CALC)); CHLORIDE 105 mmol/l (95-108); CREATININE 0.8 mg/dL (0.5-1.0); GFR > 60 ML/MIN (>=60 (CALC)); GFR FOR AFR.AMER. > 60 ML/MIN (>=60 (CALC)); SGOT/AST 25 u/l (9-36); SODIUM 142 mmol/l (137-146)
[2018-10-15 05:38] LABS: ANION GAP 13 (6-22 (CALC)); CARBON DIOXIDE 29 mmol/l (22-30); DIGOXIN 1.7 ng/mL (0.8-2.0); POTASSIUM 5.3 mmol/l (3.5-5.1)
--- NOTE | 2018-10-15 06:06 | NUR ---
TYLENOL ADMINISTERED FOR BILATERAL SHOULDER PAIN.
--- NOTE | 2018-10-15 07:09 | NUR ---
RECVD REPORT FROM ROBBY YEPEZ AT START OF SHIFT
--- NOTE | 2018-10-15 07:20 | NUR ---
ACCUCHECK COMPLETED. PT REPOSITIONED HERSELF UPRIGHT FOR BREAKFAST. SITTING UP IN BED, EATING. PT CONVERSING APPROPRIATELY. A&Ox4. APPEARS HAPPY. REQUESTED WET/SOAPY WASHCLOTH TO WASH FACE & HANDS.
--- NOTE | 2018-10-15 08:13 | NUR ---
PT UP, REQUEST UNASSISTED, TO "CHANGE PAMPER & PUT ON PANTS". CALLBELL W/IN REACH.
--- NOTE | 2018-10-15 08:14 | NUR ---
PT GIVEN PITCHER FULL OF ICE/NO WATER, PER REQUEST.
--- NOTE | 2018-10-15 09:08 | NUR ---
DAUGHTER CALLED TO SPEAK WITH NURSE, ASKING IF PT WILL BE DC TODAY BC PT TOLD HER SHE HAS TIGHTNESS IN HER CHEST AND THATS WHY SHES THERE SO WE NEED TO FIX HER. DAUGHTER DOES NOT HAVE PTS CODE, UNABLE TO GIVE INFO OVER THE PHONE. THIS RN WAS STANDING IN THE ROOM WHILE PT TALKED TO SAME DAUGHTER & HER SON BEFORE THAT. PT STATES SHE NEEDS BLOOD BC THIS IS HOW SHE FELT A COUPLE MONTHS AGO AND SHE FELT BETTER AFTER GETTING BLOOD. EXPLAINED TO PT SHE HAS PNA. REVIEWED LAB WORK WITH PT & EDUCATED ON TRANSFUSIONS. DAUGHTER STATES SHE WILL BE HERE SOON.
--- NOTE | 2018-10-15 09:28 | NUR ---
DAUGHTER, IVAN, @BEDSIDE. GIVEN CODE W/PTS PERMISSION. DISCUSSED DX, TEST RESULTS, POC, ABX.
--- NOTE | 2018-10-15 09:43 | NUR ---
PT CONVERSING W/OUT DIFFICULTY WITH DAUGHTER. SPO2 98%, PT PLACING SELF ON NC NEEDED. CURRENTLY ON 2L NC. HR 92 ON TELE. WILL CONTINUE TO MONITOR.
--- NOTE | 2018-10-15 10:27 | NUR ---
DR RODRIGUEZ @BEDSIDE W/PT & DAUGHTER
--- NOTE | 2018-10-15 11:40 | NUR ---
PT SITTING UP IN CHAIR, EATING LUNCH. 2 VISITORS & 2 CHILDREN @BEDSIDE VISITING. PT APPEARS HAPPY. BREATHING EVEN/UNLABORED. NO PROBLEMS COMMUNICATING.
--- NOTE | 2018-10-15 12:38 | NUR ---
AFTER VISITORS LEFT, I ENTERED TO COLLECT LUNCH TRAY. PT STATES SHE WANTS TO KEEP PLATE OF BURGER/FRIES. COVER PLACED ON PLATE, PT PLACED PLATE ON WINDOWSILL. PT STATES SHES NOT HUNGRY NOW BC SHE JUST ATE BREAKFAST AT 0930 AND WONT BE HUNGRY AGAIN UNTIL [phone]. MINUTES LATER, ANOTHER VISITOR ON [facility] COMES IN WITH A 20oz COKE & A WHOPPER MEAL FROM [employer]. EXPLAINED PT IS ON A SPECIAL DIET WHILE IN THE HOSPITAL. VISITOR WAS VERY RUDE TO STAFF. PT REMAINS PLEASANT. STANDING UP & TRANSFERING BACK & FORTH B/W BED & CHAIR. NO DYSPNEA WITH CONVERSATION OR AMBULATION.
--- NOTE | 2018-10-15 13:22 | NUR ---
RT @BEDSIDE FOR BREATHING TREATMENT. PT CONTINUES TO TALK WITH VISITOR THROUGH BREATHING TREATMENT. PT SITTING ON SIDE OF BED. VSS.
--- NOTE | 2018-10-15 15:40 | NUR ---
PT SITTING IN CHAIR. NO VISITORS AT THIS TIME. PT STATES SHE "IS TAKING A BREAK, SHE HAS BEEN TALKING FOR A LONG TIME".
--- NOTE | 2018-10-15 15:43 | NUR ---
PT UP TO USE BATHROOM TOILET, REDIRECTED BACK TO BSC.
--- NOTE | 2018-10-15 15:54 | NUR ---
PT TRANSFERED BACK TO CHAIR, UNASSISTED. SPO2 87% ON RA, PLACED BACK ON 2L NC SPO2 IS 93% PT TALKING ON CELLPHONE, LOUDLY! WILL CONTINUE TO MONITOR.
--- NOTE | 2018-10-15 17:07 | NUR ---
RT @BEDSIDE FOR BREATHING TREATMENT.
--- NOTE | 2018-10-15 17:21 | NUR ---
PT SITTING UP IN CHAIR, EATING DINNER. NO NEW NEEDS/CONCERNS AT THIS TIME.
--- NOTE | 2018-10-15 17:27 | NUR ---
PTS HR JUMPED TO 160'S. TRIED TO GET PT TO VAGAL DOWN BUT PT REPEATEDLY RESPONDED FOR ME TO "LEAVE HER ALONE & LET HER EAT". UNABLE TO CONTACT DR MICHAEL LM ON VM. CONTACTED RT FOR NEW EKG. CALLED PTS DAUGHTER, FACUNDO, TO SPEAK TO PT.
--- NOTE | 2018-10-15 17:29 | NUR ---
RAPID REPONSE CALLED.
--- NOTE | 2018-10-15 17:50 | NUR ---
PER DR RODRIGUEZ, IV CARDIZEM DRIP STARTED. PT REFUSING DINNER WHILE IN BED. BED ALARM SET. PT REFUSING TO LOOK AT/TALK TO STAFF. EDUCATED PT ON NEW MEDICATION & POC.
--- NOTE | 2018-10-15 18:15 | NUR ---
DAUGHTER @BEDSIDE WITH PT. PT CONVERSING, 98% ON 2L NC
--- NOTE | 2018-10-15 19:01 | NUR ---
BEDSIDE REPORT RECEIVED FROM ROBBY MAGDALENO.
--- NOTE | 2018-10-15 19:51 | NUR ---
PT UP TO BSC AT THIS TIME; ALERT AND ORIENTED WITH DAUGHTER AT BEDSIDE. C/O MILD PAIN TO LUE AT INSULIN INJECTION SITE; NOTED DISCOLORATION AT SITE. RESPIRATIONS EVEN AND UNLABORED ON OXYGEN 2L VIA NC. CARDIZEM GTT INFUSING AT 10 MG/HR; AFIB ON TELEMETRY WITH HEART RATE IN THE 90'S; IV SITE APPEARS HEALTHY. PLAN OF CARE REVIEWED. PT AND DAUGHTER ENCOURAGED TO VERBALIZE CONCERNS; BOTH VERBALIZE COMPLAINTS ABOUT EVENTS DURING PREVIOUS SHIFT INCLUDING NURSE. BUMP GRADER OPERATOR INFORMED OF COMPLAINTS. SAFETY MEASURES IN PLACE. CALL LIGHT WITHIN REACH.
--- NOTE | 2018-10-15 20:02 | NUR ---
CARDIZEM DRIP DISCONTINUED FOR SUDDEN DECREASE IN HEART RATE INTO THE 60'S. BLOOD PRESSURE STABLE; PT FEELS BETTER LAUGHING AND SMILING. DAUGHTER LEFT BEDSIDE.
--- NOTE | 2018-10-15 20:47 | NUR ---
METOPROLOL HELD FOR LOW PULSE; PT ASYMPTOMATIC. LORTAB ADMINISTERED WITH HS MEDS FOR BILATERAL SHOULDER PAIN.
--- NOTE | 2018-10-15 21:38 | NUR ---
RT AT BEDSIDE FOR BREATHING TREATMENT.
--- NOTE | 2018-10-15 22:29 | NUR ---
PT AMBULATED INTO BATHROOM INDEPENDENTLY. HEART RATE INCREASED NOW INTO THE 60'S AND 70'S. VS STABLE.
[2018-10-16] VITALS (12 sets, daily range): BP systolic 105–170; BP diastolic 54–79
--- NOTE | 2018-10-16 00:01 | NUR ---
PT AWAKE AND PLAYING ON PHONE, WATCHING TV. USED CALL LIGHT TO ASK FOR MORE ICE. NO OTHER REQUESTS OR CONCERNS AT THIS TIME. VS STABLE. SAFETY MEASURES IN PLACE. CALL LIGHT WITHIN REACH.
--- NOTE | 2018-10-16 02:14 | NUR ---
PT ASLEEP AT THIS TIME WITH NO SIGNS OF DISTRESS. RESPIRATIONS EVEN AND UNLABORED ON OXYGEN. REMAINS AFIB ON TELEMETRY HEART RATE IN THE 60'S.
--- NOTE | 2018-10-16 04:51 | NUR ---
LAB AT BEDSIDE.
[2018-10-16 05:18] LABS: HEMATOCRIT 32.7 % (37.0-47.0); HEMOGLOBIN 9.6 g/dl (12.0-16.0); IMMATURE GRANULOCYTES 0.3 % (0.0-5.0); MEAN CELL VOLUME 88.9 fL CALC (80.0-100.0); MEAN CORPUSCULAR HGB 26.1 pG CALC (26.0-32.0); MEAN CORPUSCULAR HGB CONC 29.4 g/L CALC (32.0-36.0); NEUT# 5.57 thou/uL (2.00-7.15); RED BLOOD COUNT 3.68 mill/uL (4.20-5.60); RED CELL DISTRI WIDTH 21.1 % (11.5-15.5)
[2018-10-16 05:33] LABS: INTERNATIONAL NORMALIZED RATIO 3.4 RATIO (0.7-1.3); PROTHROMBIN TIME 35.5 SECONDS (9.0-12.5)
[2018-10-16 05:34] LABS: ALBUMIN 3.8 g/dL (3.2-5.0); ALKALINE PHOSPHATASE 86 u/l (38-126); BILIRUBIN, TOTAL 0.6 mg/dL (0.0-1.4); BUN 31 mg/dL (8-23); BUN/CREATININE RATIO 36 (12-20 (CALC)); CARBON DIOXIDE 29 mmol/l (22-30); CHLORIDE 104 mmol/l (95-108); CREATININE 0.9 mg/dL (0.5-1.0); GFR 60 ML/MIN (>=60 (CALC)); GFR FOR AFR.AMER. > 60 ML/MIN (>=60 (CALC)); MAGNESIUM 1.9 mg/dL (1.6-2.3); SGOT/AST 24 u/l (9-36); SODIUM 140 mmol/l (137-146); TOTAL PROTEIN 6.5 g/dL (6.3-8.2)
--- NOTE | 2018-10-16 05:43 | NUR ---
RT AT BEDSIDE FOR BREATHING TREATMENT.
[2018-10-16 05:48] LABS: ANION GAP 13 (6-22 (CALC)); POTASSIUM 5.5 mmol/l (3.5-5.1)
--- NOTE | 2018-10-16 06:06 | NUR ---
TYLENOL GIVEN FOR LEFT SHOULDER PAIN. PT SITTING UP ON EDGE OF BED; ALERT AND ORIENTED. REQUESTS MORE ICE WATER. SAFETY MEASURES IN PLACE. CALL LIGHT WITHIN REACH.
--- NOTE | 2018-10-16 07:05 | NUR ---
REPORT RECEIVED FROM ROBBY YEPEZ;PT APPEARS TO BE SLEEPING IN SEMI FOWLERS POSITION;RESPIRATIONS EVEN AND UNLABORED ON RA;PT READING AFIB WITH A CONTROLLED RATE OF 65 ON THE MAINTENANCE MANAGER;ALL SAFETY PRECAUTIONS REINFORCED WITH BED IN THE LOWEST POSITION AND CALL LIGHT IN REACH;WILL CONTINUE TO MONITOR
--- NOTE | 2018-10-16 07:30 | NUR ---
PT APPEARS TO BE SLEEPING IN SEMI FOWLERS POSITION, WAKES EASILY TO VERBAL STIMULI;INTRODUCED SELF TO PT AND POC DISCUSSED;VS OBTAINED AND ASSESSMENT COMPLETED;PT DENIES ANY CURRENT PAIN,PAIN SCALE AND REPORTING EDUCATED;RESPIRATIONS EVEN AND UNLABORED ON O2 @ 2L VIA NC,CLEAR LUNG SOUNDS NOTED;ABDOMEN DISTENDED/SOFT ON PALPATION AND ACTIVE IN ALL 4 QUADRANTS;STRONG PEDAL PULSES;GENERALIZED BRUISING NOTED TO LUE, SKIN OTHERWISE INTACT;#22G TO LEFT FOREARM AND #20G TO LAC FLUSHED AND PATENT,BOTH SITES APPEAR HEALTHY;CARDIAC MONITORING IN PLACE;ACCUCHECK OBTAINED RESULTING IN 252, PT TO BE COVERED WITH SLIDING SCALE NOVOLOG PER ORDER;MEAL TRAY SET UP PROVIDED;PT EXPRESSES FEELINGS REGARDING CARE ON DAYSHIFT 10/15/18, PT RE-ASSURED AND ENCOURAGED TO EXPRESS ANY NEEDS OR CONCERNS;PT DENIES ANY ADDITIONAL NEEDS AT THIS TIME;INSTRUCTED TO CALL FOR ASSISTANCE IF NEEDED;FALL PRECAUTIONS IN PLACE WITH CALL LIGHT IN REACH;WILL CONTINUE TO MONITOR
--- NOTE | 2018-10-16 09:00 | NUR ---
PT AMBULATED WITH A STAND-BY ASSIST TO RESTROOM AND VOIDED 100CC OF CLEAR/YELLOW URINE, BM MODERATE BROWN/FORMED;PARTIAL BATH,ORAL CARE AND NEW GOWN PROVIDED;PT RE-POSITIONED INTO RECLINER; VS OBTAINED; RESPIRATIONS REMAIN EVEN AND UNLABORED;PT DENIES ANY CURRENT PAIN OR NEEDS;IV SITE TO LEFT FOREARM REMOVED DUE TO OCCLUSION WITH CATHETER INTACT;ALL MORNING MEDICATION ADMINISTERED AT THIS TIME AND ABX HUNG;PT DENIES ANY ADDITIONAL NEEDS AND IS ENCOURAGED TO CALL FOR ASSISTANCE IF NEEDED;FALL PRECAUTIONS IN PLACE WITH CALL LIGHT INN REACH;WILL CONTINUE TO MONITOR
--- NOTE | 2018-10-16 10:45 | NUR ---
RESPIRATORY AT BEDSIDE
--- NOTE | 2018-10-16 10:55 | NUR ---
AT BEDSIDE DISCUSSING POC INCLUDING PLAN TO DISCHARGE HOME, PT VERBALIZES UNDERSTANDING.
--- NOTE | 2018-10-16 11:00 | NUR ---
PT OOB RESTING IN RECLINER;RESPIRATIONS EVEN AND UNLABORED ON RA;PT DENIES ANY CURRENT PAIN OR DISCOMFORTS;CARDIAC MONITORING READING AFIB 73;ACCUCHECK 316, PT COVERED WITH SLIDING SCALE NOVOLOG PER ORDER;PT VERBALIZES UNDERSTANDING OF DICHARGE PLAN;PT DENIES ANY ADDITIONAL NEEDS AT THIS TIME AND IS NECOURAGED TO CALL FOR ASSISTANCE IF NEEDED;FALL PRECAUTIONS IN PLACE WITH CALL LIGHT IN REACH;WILL CONTINUE TO MONITOR
[2018-10-16] MEDS ORDERED: LEVAQUIN500 MG PO (12:20)
[2018-10-16] MEDS ORDERED: LANOXIN0.125 MG PO (12:21)
--- NOTE | 2018-10-16 12:30 | NUR ---
PT ASSISTED TO RESTROOM BY RADHARN;RESPIRATIONS EVEN AND UNLABORED ON RA;PT DENIES ANY CURRENT PAIN OR NEEDS;EXPRESSES ANXIOUSNESS TO GO HOME;PT HAD ANOTHER MODERATE BROWN/FORMED BM AND VOIDED 100CC OF CLEAR/YELLOW URINE;PT RE-POSITIONED BACK INTO RECLINER;MEAL TRAY COMPLETED 75%;AWAITING DISCHARGE ORDERS AND TRANSPORATION BY FAMILY FOR DISCHARGE;PT DENIES ANY ADDITIONAL NEEDS;CALL LIGHT IN REACH;WILL CONTINUE TO MONITOR
--- NOTE | 2018-10-16 14:00 | NUR ---
RESPIRATORY AT BEDSIDE;PT AMBULATED WITH A STEADY GAIT TO RESTROOM AND VOIDED 100CC OF CLEAR/YELLOW URINE AND HAD ANOTHER MODERATE BROWN/FORMED BM;RESPIRATIONS EVEN AND UNLABORED ON RA;PT DENIES ANY CURRENT PAIN OR DISCOMFORTS;PT RE-POSITIONED INTO RECLINER FOR COMFORT;CARIAC MONITOR READING AFIB 80'S;PT DENIES ANY ADDITIONAL NEEDS AND IS ENCOURAGED TO CALL FOR ASSISTANCE IF NEEDED;AWAITING FAMILY FOR TRANSPORTATION HOME. WILL CONTINUE TO MONITOR
--- NOTE | 2018-10-16 14:30 | NUR ---
ALL DISCHARGE INSTRUCTIONS PROVIDED AT THIS TIME, QUESTIONS ANSWERED;PT INSTRUCTED TO SEARCH CONSULTANT RX FOR LEVAQUIN AND DIGOXIN;PT ALSO ENCOURAGED TO FOLLOW UP WITH CARDIOLOGY. CARD FOR 'S OFFICE PROVIDED;IV SITE REMOVED WITH CATHETER INTACT;PT DENIES ANY ADDITIONAL NEEDS;WHEELCHAIR TO BE PROVIDED FOR DISCHARGE HOME.
--- NOTE | 2018-10-16 14:38 | NUR ---
Discharge instructions given. Patient verbalizes understanding of same. Discharged in stable condition via Wheelchair to Home with family. All belongings sent with pt. While packing for discharge pt reported that she had lost her left hearing aid yesterday 10/15/18. Family and writter searched room and sheets but no hearing aid found. Pt states "oh no don't worry about it, I pay $19.99". Writter appologized for inconvenience and pt verbalized understanding. Pt transported to [facility] via wheelchair in stable condition accompanied by Volunteer and 2 family members.
== END 2018-10-16 14:38 | disposition home or self-care (01) | DRG 194 ==
LOC: ED 08:05 → ED-I 09:19 → ED 10:17 → ICU 10:18 → ED-I 10:18 → ICU 12:29
PROVIDERS: Emergency Medicine; ADMIT Internal Medicine Nephrology; ATTEND Internal Medicine Nephrology
DX: J18.9 Pneumonia, unspecified organism (principal); J44.1 Chronic obstructive pulmonary disease with (acute) exacerbation; J44.0 Chronic obstructive pulmonary disease with (acute) lower respiratory infection; I13.0 Hypertensive heart and chronic kidney disease with heart failure and stage 1 through stage 4 chronic kidney disease, or unspecified chronic kidney disease; I50.32 Chronic diastolic (congestive) heart failure; J91.8 Pleural effusion in other conditions classified elsewhere; I48.2 Chronic atrial fibrillation; E11.22 Type 2 diabetes mellitus with diabetic chronic kidney disease; N18.3 Chronic kidney disease, stage 3 (moderate); H91.90 Unspecified hearing loss, unspecified ear; I25.10 Atherosclerotic heart disease of native coronary artery without angina pectoris; M06.9 Rheumatoid arthritis, unspecified; D63.8 Anemia in other chronic diseases classified elsewhere; E78.5 Hyperlipidemia, unspecified; Z86.73 Personal history of transient ischemic attack (TIA), and cerebral infarction without residual deficits; Z95.1 Presence of aortocoronary bypass graft; Z79.84 Long term (current) use of oral hypoglycemic drugs; Z79.01 Long term (current) use of anticoagulants; Z95.3 Presence of xenogenic heart valve; Z87.891 Personal history of nicotine dependence
CPT/HCPCS: J1160; J3475

== ENCOUNTER 2019-12-26 19:06 | Emergency (ER) | payer MEDICARE, MEDICAID ==
[~2019-12-26] VITALS: Ht 165.1 cm; Wt 53.2 kg
[~2019-12-26 19:06] MED LIST changes: +ALDACTONE25 MG PO; +ASPIRIN 8181 MG PO; +DIGOXIN125 MCG PO; +JANUVIA100 MG PO; +LANOXIN0.125 MG PO; +LOSARTAN POTASS50 MG PO; +MONTELUKAST SOD10 MG PO; +OMEPRAZOLE20 M2 PO
[2019-12-26 19:53] LABS: URINE BILIRUBIN - DIPSTICK NEGATIVE (NEGATIVE); URINE BLOOD DIPSTICK TRACE-LYSED (NEGATIVE); URINE COLOR YELLOW; URINE GLUCOSE - DIPSTICK 500 mg/dL (NEGATIVE); URINE KETONE NEGATIVE (NEGATIVE); URINE LEUK ESTERASE TRACE (NEGATIVE); URINE NITRITE - DIPSTICK NEGATIVE (Negative); URINE PH 5.5 (4.5-8.0); URINE PROTEIN - DIPSTICK NEGATIVE (NEG-TRACE); URINE SPECIFIC GRAVITY 1.025; URINE UROBILINOGEN - DIPSTICK 0.2 E.U./dL (0.2)
[2019-12-26 19:53] LABS: HEMATOCRIT 25.9 % (37.0-47.0); HEMOGLOBIN 7.8 g/dl (12.0-16.0); IMMATURE GRANULOCYTES 0.9 % (0.0-5.0); MEAN CELL VOLUME 86.9 fL CALC (80.0-100.0); MEAN CORPUSCULAR HGB 26.2 pG CALC (26.0-32.0); MEAN CORPUSCULAR HGB CONC 30.1 g/dL CAL (32.0-36.0); NEUT# 5.91 thou/uL (2.00-7.15); RED BLOOD COUNT 2.98 mill/uL (4.20-5.60); RED CELL DISTRI WIDTH 14.4 % (11.5-15.5)
[2019-12-26] MEDS ORDERED: GLIPIZIDE5 MG PO (19:55)
[2019-12-26] MEDS ORDERED: ARNUITY EL50 MCG/ACT (19:56)
[2019-12-26] MEDS ORDERED: ANORO ELLIPTA 61 AER IN (19:56)
[2019-12-26] MEDS ORDERED: PROLIA60 MG/ML SC (19:57)
[2019-12-26 20:09] LABS: ALBUMIN 4.6 g/dL (3.2-5.0); BILIRUBIN, TOTAL 0.3 mg/dL (0.0-1.4); CREATININE 1.1 mg/dL (0.5-1.0); TOTAL PROTEIN 7.5 g/dL (6.3-8.2)
[2019-12-26 20:16] LABS: POTASSIUM 5.4 mmol/l (3.5-5.1)
[2019-12-26 20:28] LABS: PROTHROMBIN TIME 28.3 SECONDS (9.0-12.5)
[2019-12-26] MEDS ORDERED: ZOFRAN4 MG/TAB PO (21:06)
[2019-12-26 21:20] VITALS: BP 102/50
== END 2019-12-26 21:21 | disposition home or self-care (01) ==
LOC: ED 19:06
PROVIDERS: Family Medicine
DX: K52.9 Noninfective gastroenteritis and colitis, unspecified (principal); I48.91 Unspecified atrial fibrillation; D63.8 Anemia in other chronic diseases classified elsewhere; E11.22 Type 2 diabetes mellitus with diabetic chronic kidney disease; I12.9 Hypertensive chronic kidney disease with stage 1 through stage 4 chronic kidney disease, or unspecified chronic kidney disease; N18.9 Chronic kidney disease, unspecified; H91.90 Unspecified hearing loss, unspecified ear; Z79.84 Long term (current) use of oral hypoglycemic drugs; Z95.1 Presence of aortocoronary bypass graft; Z86.73 Personal history of transient ischemic attack (TIA), and cerebral infarction without residual deficits

== ENCOUNTER 2020-02-07 18:55 | Observation (INO) | payer MEDICARE, MEDICAID ==
[~2020-02-07] VITALS: Ht 154.9 cm; Wt 55.0 kg
[~2020-02-07 18:55] MED LIST changes: +ANORO ELLIPTA 61 AER IN; +ARNUITY EL50 MCG/ACT; +GLIPIZIDE5 MG PO; +ZOFRAN4 MG/TAB PO
[2020-02-07 20:33] LABS: ALBUMIN 4.3 g/dL (3.2-5.0); CREATININE 1.1 mg/dL (0.5-1.0); TOTAL PROTEIN 7.2 g/dL (6.3-8.2)
[2020-02-07 20:34] LABS: BILIRUBIN, TOTAL 0.8 mg/dL (0.0-1.4); INTERNATIONAL NORMALIZED RATIO 1.5 RATIO (0.7-1.3); POTASSIUM 4.1 mmol/l (3.5-5.1); PROTHROMBIN TIME 14.3 SECONDS (9.0-12.5)
[2020-02-07 22:16] VITALS: BP 145/66
[2020-02-07 23:00] VITALS: BP 129/57; BP 129/67
[2020-02-08] VITALS (14 sets, daily range): BP systolic 115–145; BP diastolic 44–64
[2020-02-08 05:58] LABS: IMMATURE GRANULOCYTES 0.4 % (0.0-5.0); MEAN CORPUSCULAR HGB 25.8 pG CALC (26.0-32.0); MEAN CORPUSCULAR HGB CONC 30.7 g/dL CAL (32.0-36.0); NEUT# 5.11 thou/uL (2.00-7.15); RED BLOOD COUNT 3.88 mill/uL (4.20-5.60); RED CELL DISTRI WIDTH 15.3 % (11.5-15.5)
[2020-02-08 06:00] LABS: HEMATOCRIT 32.6 % (37.0-47.0)
[2020-02-08 06:21] LABS: ALBUMIN 3.8 g/dL (3.2-5.0); ALKALINE PHOSPHATASE 58 u/l (38-126); ANION GAP 12 (6-22 (CALC)); BUN 15 mg/dL (8-23); BUN/CREATININE RATIO 17 (12-20 (CALC)); CARBON DIOXIDE 28 mmol/l (22-30); CHLORIDE 106 mmol/l (95-108); CREATININE 0.9 mg/dL (0.5-1.0); GFR 60 ML/MIN (>=60 (CALC)); GFR FOR AFR.AMER. > 60 ML/MIN (>=60 (CALC)); POTASSIUM 4.5 mmol/l (3.5-5.1); SGOT/AST 22 u/l (9-36); SODIUM 141 mmol/l (137-146); TOTAL PROTEIN 6.5 g/dL (6.3-8.2)
[2020-02-08 06:22] LABS: BILIRUBIN, TOTAL 2.8 mg/dL (0.0-1.4)
[2020-02-08] MEDS ORDERED: PROTONIX40 M2 PO (08:29)
== END 2020-02-08 09:44 | disposition home or self-care (01) ==
LOC: ED 18:55 → ED-I 19:45 → ED 19:45 → ED-I 20:28 → ED 20:33 → ICU 20:34
PROVIDERS: Emergency Medicine; ADMIT Internal Medicine; ATTEND Internal Medicine
PROC: 30233N1 Transfusion of Nonautologous Red Blood Cells into Peripheral Vein, Percutaneous Approach (ICD-10-PCS; principal; 2020-02-07)
PROC: 30233N1 Transfusion of Nonautologous Red Blood Cells into Peripheral Vein, Percutaneous Approach (ICD-10-PCS; 2020-02-08)
PROC: 30233N1 Transfusion of Nonautologous Red Blood Cells into Peripheral Vein, Percutaneous Approach (ICD-10-PCS; 2020-02-08)
DX: D64.9 Anemia, unspecified (principal); E11.22 Type 2 diabetes mellitus with diabetic chronic kidney disease; I13.0 Hypertensive heart and chronic kidney disease with heart failure and stage 1 through stage 4 chronic kidney disease, or unspecified chronic kidney disease; N18.9 Chronic kidney disease, unspecified; I50.9 Heart failure, unspecified; I25.10 Atherosclerotic heart disease of native coronary artery without angina pectoris; H91.90 Unspecified hearing loss, unspecified ear; E78.5 Hyperlipidemia, unspecified; Z79.84 Long term (current) use of oral hypoglycemic drugs; Z86.73 Personal history of transient ischemic attack (TIA), and cerebral infarction without residual deficits; Z95.1 Presence of aortocoronary bypass graft; Z95.3 Presence of xenogenic heart valve; Z20.828 Contact with and (suspected) exposure to other viral communicable diseases
CPT/HCPCS: P9016; S0164

== ENCOUNTER 2020-08-02 09:50 | Inpatient (IN) | payer MEDICARE, MEDICAID ==
[~2020-08-02] VITALS: Ht 154.9 cm; Wt 55.0 kg
[~2020-08-02 09:50] MED LIST changes: +PROTONIX40 M2 PO
--- NOTE | 2020-08-02 09:58 | NUR ---
TO ROOM 15 FOR TRIAGE
--- NOTE | 2020-08-02 11:14 | NUR ---
PATIENT WENT TO [facility], [facility] UNABLE TO PRODUCE SPECIMEN AT THIS TIME.
[2020-08-02 11:26] LABS: HEMATOCRIT 25.3 % (37.0-47.0); HEMOGLOBIN 7.6 g/dl (12.0-16.0); IMMATURE GRANULOCYTES 0.8 % (0.0-5.0); MEAN CELL VOLUME 91.7 fL CALC (80.0-100.0); MEAN CORPUSCULAR HGB 27.5 pG CALC (26.0-32.0); NEUT# 7.87 thou/uL (2.00-7.15); RED BLOOD COUNT 2.76 mill/uL (4.20-5.60); RED CELL DISTRI WIDTH 13.9 % (11.5-15.5)
[2020-08-02 11:45] LABS: ALBUMIN 4.3 g/dL (3.2-5.0); ALKALINE PHOSPHATASE 69 u/l (38-126); ANION GAP 12 (6-22 (CALC)); BILIRUBIN, TOTAL 0.7 mg/dL (0.0-1.4); BUN 17 mg/dL (8-23); BUN/CREATININE RATIO 14 (12-20 (CALC)); CARBON DIOXIDE 25 mmol/l (22-30); CHLORIDE 104 mmol/l (95-108); CREATININE 1.3 mg/dL (0.5-1.0); GFR 39 ML/MIN (>=60 (CALC)); GFR FOR AFR.AMER. 47 ML/MIN (>=60 (CALC)); POTASSIUM 4.6 mmol/l (3.5-5.1); SGOT/AST 30 u/l (9-36); SODIUM 137 mmol/l (137-146); TOTAL PROTEIN 7.6 g/dL (6.3-8.2)
[2020-08-02 11:57] LABS: MYOGLOBIN 246 ng/mL (0 - 62)
[2020-08-02 12:45] LABS: URINE BILIRUBIN - DIPSTICK NEGATIVE (NEGATIVE); URINE BLOOD DIPSTICK TRACE-LYSED (NEGATIVE); URINE COLOR YELLOW; URINE GLUCOSE - DIPSTICK 250 mg/dL (NEGATIVE); URINE KETONE NEGATIVE (NEGATIVE); URINE LEUK ESTERASE NEGATIVE (NEGATIVE); URINE PROTEIN - DIPSTICK 100 mg/dL (NEG-TRACE); URINE SPECIFIC GRAVITY >=1.030; URINE UROBILINOGEN - DIPSTICK 0.2 E.U./dL (0.2)
[2020-08-02 12:47] LABS: URINE NITRITE - DIPSTICK NEGATIVE (Negative)
[2020-08-02 12:51] LABS: URINE BACTERIA MODERATE hpf; URINE RBC 0-2 RBC/hpf (0-5); URINE SQUAMOUS EPITHELIAL CELL MODERATE EPI/hpf (0-FEW)
[2020-08-02 13:52] LABS: INTERNATIONAL NORMALIZED RATIO 1.9 RATIO (0.7-1.3); PROTHROMBIN TIME 19.1 SECONDS (9.0-12.5)
[2020-08-02] MEDS ORDERED: METFORMIN HCL1000 MG PO (15:21)
--- NOTE | 2020-08-02 15:21 | NUR ---
pharmacy consult placed, report called to med/ear nose throat surgeon
--- NOTE | 2020-08-02 15:25 | NUR ---
RECIEVED REPORT FROM ER.
--- NOTE | 2020-08-02 15:39 | NUR ---
ROOM NOT READY
--- NOTE | 2020-08-02 15:43 | NUR ---
LAB PRESENT BEDSIDE FOR TYPE & SCREEN COLLECTION
[2020-08-02 16:02] VITALS: BP 137/63
--- NOTE | 2020-08-02 16:02 | NUR ---
PT AARIVED TO [facility] ROOM 262 VIA STRETCHER ACCOMPAINED BY ER STAFF. PT AMBULATED WITH STEADY GAIT TO BED. PT IS A/O X3 AND MOSTLY ARMENIAN SPEAKING. ASSESSMENT AND VITALS COMPLETED. BP 159/67, HR 56, O2 98% ON 2L NC THAT PT IS DEPENDENT ON AT HOME. REPSIRATIONS ARE EVEN AND UNLABORED WITH NO DISTRESS NOTED. PT STATES SHE DOES EXCERTIONAL SOB. HEART RHYTHM IS NORMAL WITH TELE IN PLACE, SR ER MONITORING. BOWEL SOUNDS ARE ACTIVE. LAST REPORETD BM 08/02/20/ RADIAL AND PEDAL PULSES STRONG. #20G IN RAC FLUSHED, IVF STARTED AND ANTIBIOTICS INFUSING. SITE REMAINS HEALTHY AND PATENT. ACCUCHECK REUSLTING IN 201. PT DENIES OF ANY PAINS OR DISCOMFORTS. ALL SAFETY PRECAUTIONS ARE IN PLACE WITH CALL LIGHT IN REACH. BSC IN PLACE. ENCOURAGED PT TO CALL FOR ASSSITANCE. WILL CONTINUE TO MONITOR
--- NOTE | 2020-08-02 16:50 | NUR ---
PT INFORMED OF BLOOD TRANSFUSION. CALLED SON ANGLE THAT ASSISTED WITH TRANSLATION. INFORMED CONSENT OBTAINED.
--- NOTE | 2020-08-02 17:19 | NUR ---
DAUGHTER AT BEDSIDE
[2020-08-02] MEDS ORDERED: WARFARIN3 MG PO (17:24)
[2020-08-02 17:25] VITALS: BP 151/67
--- NOTE | 2020-08-02 17:37 | NUR ---
DAUGHTER AT BEDSIDE. PT INFORMED OF NEEDED STOOL SAMPLES. DAUGHTER STATED THAT PT HAS HAD A POSITIVE OCCULT BUT PT CONTINUES TO REFUSE AN COLONOSCOPY.
--- NOTE | 2020-08-02 17:55 | NUR ---
UNIT OF BLOOD SPIKED BY ROBBY DUNN. MACHINE FILLER TO STAY WITH PT FOR INITAL 15 MIN. PT EDUCATED ON S/S OF REACTIONS, PT VERBLAIZED UNDERSTANDING. #20G IN RAC INFUSING [facility] BLOOD, SITE REMAINS HEALTHY AND PATENT. WILL CONTINUE TO MONITOR
[2020-08-02 18:10] VITALS: BP 125/61
--- NOTE | 2020-08-02 18:11 | NUR ---
VITALS OBTAINED. BP 125/61, HR 60, RR 18, TEMP 98.3. RESPRTATIONS REMAINS EVEN AND UNLABOED WITH NO DSIRTSSS NOTED. BLOOD INFUSING IN #20G RAC, SITE ERMAINS HEALTHY AND PATENT. PT DENIES ANY S/S OF REACTION. PT REEDUCATED.PT ASSISTED TO BSC AND BACK INTO BED. ALL SAFETY PRECAUTIONS ARE IN PLACE. WILL CONTINUE TO MONITOR.
[2020-08-02 18:55] VITALS: BP 131/62
[2020-08-02 19:00] VITALS: BP 131/62
--- NOTE | 2020-08-02 19:40 | NUR ---
PT RESTING QUIETLY IN BED AT THIS TIME. REPORT RECEIVED FROM KINA NETTLES. NO COMPLAINTS AT THIS TIME. IV REMAINS PATENT TO FLUSH. BREATHING EVEN AND UNLABBORED. SCATTERED WHEEZING THROUGHOUT. BLOOD TRANSFUSION COMPLETED, VS REMAIN WNL, DISCONNECTED BLOOD PRODUCT, FLUSHED SITE, AND CONNECTED TO IV FLUIDS. PT TOLERAATED WELL. REPORTS PAIN AND PT WAS ADVISED SOON PAIN MEDICATION CAN BE GIVEN SHE CAN HAVE PAIN MEDICATION. SAFETY PRECAUTIONS IN PLACE, BED IN LOWEST POSITION, CALL LIGHT WITHIN REACH.
[2020-08-02 20:00] VITALS: BP 153/64
[2020-08-03] VITALS: BP 131/59
--- NOTE | 2020-08-03 00:17 | NUR ---
PT WITH LAB IN THE ROOM, NO COMPLAINTS VOICED AT THIS TIME. DENIES PAIN. BREATHING EVEN AND UNLABORED. SAFETY PRECAUTIONS REMAIN IN PLACE, BED IN LOWEST POSITION, CALL LIGHT WITHIN REACH.
[2020-08-03 04:00] VITALS: BP 124/62
--- NOTE | 2020-08-03 04:10 | NUR ---
PT RESTING COMFORTABLY IN BED WITH HER EYES CLOSED. NO C/O PAIN REPORTED. NO S/S OF DISTRESS. BREATHING EVEN AND UNLABORED. IV FLUIDS CONTINUE AT 75ML/HR. PT USES BEDSIDE COMMODE WITHOUT CALLING, WILL MONITOR FOR INCREASED FALL RISK. ATTEMPTED TO OBTAIN OCCULT BLOOD VIA Q-TIP IN THE RECTUM TO WHICH PT REFUSED. WILL CONTINUE TO WAIT FOR A STOOL SAMPLE FLOOLWING A BM. NO COMPLAINTS VOICED. WILL CONTINUE TO MONITOR
[2020-08-03 05:36] LABS: HEMATOCRIT 27.9 % (37.0-47.0); HEMOGLOBIN 8.4 g/dl (12.0-16.0); MEAN CELL VOLUME 90.6 fL CALC (80.0-100.0); MEAN CORPUSCULAR HGB 27.3 pG CALC (26.0-32.0); MEAN CORPUSCULAR HGB CONC 30.1 g/dL CAL (32.0-36.0); RED BLOOD COUNT 3.08 mill/uL (4.20-5.60); RED CELL DISTRI WIDTH 14.8 % (11.5-15.5)
[2020-08-03 06:01] LABS: CHOLESTEROL HDL RATIO 2.4 (<4.4 (CALC)); CREATININE 1.1 mg/dL (0.5-1.0); MAGNESIUM 1.8 mg/dL (1.6-2.3); POTASSIUM 4.5 mmol/l (3.5-5.1)
--- NOTE | 2020-08-03 06:44 | NUR ---
PT RESTING COMFORTABLY IN BED. NAD. VSS. STATES SHE "FEELS MUCH BETTER TODAY". MEDICAL COMMUNICATION SPECIALIST TO MIRIAM.
--- NOTE | 2020-08-03 07:00 | NUR ---
PT REPORT RECEIVED FROM NIGHT NURSEMAHENDRA.
[2020-08-03 07:40] VITALS: BP 133/60
--- NOTE | 2020-08-03 08:00 | NUR ---
PT WAS FOUND RESTING IN BED;PT IS A&OX3;VS AND ASSESSMENT WERE COMPLETED;HEART SOUNDS ARE REGULAR IN RATE AND RHYTHM;TELE IS IN PLACE;LUNG SOUNDS ARE CLEAR;RESPIRATIONS ARE EVEN AND UNLABORED ON O2@2L VIA NC;PT IS REPORTING SOME EXERTIONAL SOB;#20G IV IN RAC IS RUNNING NS @75 ML/HR;IV SITE IS FREE OF COMPLICATIONS AT THIS TIME;SAFETY PRECAUTIONS IN PLACE;CALL LIGHT WITHIN REACH;BED IN LOWEST POSITION;WILL CONTINUE TO MONITOR.
--- NOTE | 2020-08-03 09:10 | NUR ---
AND DIAN SYKES AT BEDSIDE DISCUSSING POC WITH PT.
[2020-08-03 10:30] VITALS: BP 121/47
--- NOTE | 2020-08-03 10:44 | NUR ---
PT RESTING COMFORTABLY IN BED. NAD. VSS. ATTORNEY AT LAW TO MONITOR.
--- NOTE | 2020-08-03 12:00 | NUR ---
PT WAS FOUND RESTING IN BED;TELE IS IN PLACE;O2 @2L VIA NC IS IN PLACE;#20G IV IN RAC IS RUNNING NS@75 ML/HR;IV SITE IS FREE OF COMPLICATIONS AT THIS TIME;SAFETY PRECAUTIONS IN PLACE;CALL LIGHT WITHIN REACH;BED IN LOWEST POSITION;WILL CONTINUE TO MONITOR.
[2020-08-03] MEDS ORDERED: ZITHROMAX250 MG PO (12:14)
[2020-08-03] MEDS ORDERED: FLEXERIL5 MG PO (12:14)
--- NOTE | 2020-08-03 14:00 | NUR ---
Discharge instructions given. Patient verbalizes understanding of same. Discharged in stable condition via wheelchair to home with [facility] accompanied by this medical technical writer. All belongings sent with pt.
== END 2020-08-03 14:00 | disposition home health service (06) | DRG 194 ==
LOC: ED 09:50 → ED-I 13:40 → ED 14:18 → MS2 14:19
PROVIDERS: Emergency Medicine; Nurse Practitioner; ADMIT Internal Medicine; ATTEND Internal Medicine
PROC: 30233N1 Transfusion of Nonautologous Red Blood Cells into Peripheral Vein, Percutaneous Approach (ICD-10-PCS; principal; 2020-08-02)
DX: J18.9 Pneumonia, unspecified organism (principal); J44.0 Chronic obstructive pulmonary disease with (acute) lower respiratory infection; I50.32 Chronic diastolic (congestive) heart failure; D63.8 Anemia in other chronic diseases classified elsewhere; I11.0 Hypertensive heart disease with heart failure; E11.9 Type 2 diabetes mellitus without complications; I25.10 Atherosclerotic heart disease of native coronary artery without angina pectoris; I48.91 Unspecified atrial fibrillation; M79.18 Myalgia, other site; E78.5 Hyperlipidemia, unspecified; Z95.1 Presence of aortocoronary bypass graft; Z86.73 Personal history of transient ischemic attack (TIA), and cerebral infarction without residual deficits; Z95.3 Presence of xenogenic heart valve; Z79.891 Long term (current) use of opiate analgesic; Z79.84 Long term (current) use of oral hypoglycemic drugs; Z20.822 Contact with and (suspected) exposure to COVID-19; D50.9 Iron deficiency anemia, unspecified; N18.31 Chronic kidney disease, stage 3a
CPT/HCPCS: P9016

== ENCOUNTER 2021-06-08 13:17 | Emergency (ER) | payer MEDICARE, MEDICAID ==
[~2021-06-08 13:17] MED LIST changes: +FLEXERIL5 MG PO; +METFORMIN HCL1000 MG PO; +WARFARIN3 MG PO
[2021-06-08 15:09] LABS: IMMATURE GRANULOCYTES 0.2 % (0.0-5.0); MEAN CORPUSCULAR HGB 24.5 pG CALC (26.0-32.0); MEAN CORPUSCULAR HGB CONC 28.7 g/dL CAL (32.0-36.0); NEUT# 4.12 thou/uL (2.00-7.15); RED BLOOD COUNT 2.69 mill/uL (4.20-5.60); RED CELL DISTRI WIDTH 14.7 % (11.5-15.5)
[2021-06-08 15:15] LABS: HEMOGLOBIN 6.6 g/dl (12.0-16.0); MEAN CELL VOLUME 85.5 fL CALC (80.0-100.0)
[2021-06-08 15:26] LABS: ALBUMIN 4.1 g/dL (3.2-5.0); BILIRUBIN, TOTAL 0.4 mg/dL (0.0-1.4); CREATININE 1.1 mg/dL (0.5-1.0); POTASSIUM 4.1 mmol/l (3.5-5.1); TOTAL PROTEIN 7.1 g/dL (6.3-8.2)
[2021-06-08 15:39] LABS: MYOGLOBIN 34 ng/mL (0 - 62)
[2021-06-08 15:40] LABS: URINE BILIRUBIN - DIPSTICK NEGATIVE (NEGATIVE); URINE BLOOD DIPSTICK TRACE-INTACT (NEGATIVE); URINE COLOR YELLOW; URINE GLUCOSE - DIPSTICK >=1000 mg/dL (NEGATIVE); URINE KETONE NEGATIVE (NEGATIVE); URINE PROTEIN - DIPSTICK NEGATIVE (NEG-TRACE); URINE UROBILINOGEN - DIPSTICK 0.2 E.U./dL (0.2)
[2021-06-08 15:41] LABS: URINE LEUK ESTERASE SMALL (NEGATIVE); URINE NITRITE - DIPSTICK NEGATIVE (Negative)
[2021-06-08 15:47] LABS: URINE BACTERIA FEW hpf; URINE RBC 0-2 RBC/hpf (0-5); URINE SQUAMOUS EPITHELIAL CELL FEW EPI/hpf (0-FEW)
[2021-06-08] MEDS ORDERED: FEOSOL45 MG PO (16:55)
[2021-06-08] MEDS ORDERED: CIPROFLOXACN500 MG PO (16:55)
[2021-06-08 17:38] VITALS: BP 132/52
[2021-06-09] MEDS ORDERED: CIPROFLOXACN500 MG PO (10:21)
[2021-06-09] MEDS ORDERED: ZITHROMAX Z-PA250 MG PO (10:22)
== END 2021-06-08 17:38 | disposition home or self-care (01) ==
LOC: ED 13:17
PROVIDERS: Emergency Medicine
DX: E11.65 Type 2 diabetes mellitus with hyperglycemia (principal); D64.9 Anemia, unspecified; N39.0 Urinary tract infection, site not specified; E11.22 Type 2 diabetes mellitus with diabetic chronic kidney disease; I12.9 Hypertensive chronic kidney disease with stage 1 through stage 4 chronic kidney disease, or unspecified chronic kidney disease; N18.9 Chronic kidney disease, unspecified; J44.9 Chronic obstructive pulmonary disease, unspecified; B95.4 Other streptococcus as the cause of diseases classified elsewhere; Z91.19 Patient's noncompliance with other medical treatment and regimen; Z79.84 Long term (current) use of oral hypoglycemic drugs; Z95.1 Presence of aortocoronary bypass graft; Z86.73 Personal history of transient ischemic attack (TIA), and cerebral infarction without residual deficits

== ENCOUNTER 2021-06-09 07:00 | Observation (INO) | payer MEDICARE, MEDICAID ==
[2021-06-09] VITALS (40 sets, daily range): BP systolic 61–163; BP diastolic 40–115
[~2021-06-09] VITALS: Ht 154.9 cm; Wt 52.0 kg
[~2021-06-09 07:00] MED LIST changes: +FEOSOL45 MG PO
--- NOTE | 2021-06-09 07:04 | NUR ---
PATIENT NOT IN WAITING ROOM WHEN CALLED.
--- NOTE | 2021-06-09 07:08 | NUR ---
PATIENT TO ROOM VIA WHEELCHAIR.
--- NOTE | 2021-06-09 07:30 | NUR ---
Patient resting quietly at this time, awaiting laboratory results, patient son in waiting room, patient states that son has a cough wth cold symptoms at this time.
[2021-06-09 07:33] LABS: HEMATOCRIT 24.5 % (37.0-47.0); IMMATURE GRANULOCYTES 0.4 % (0.0-5.0); MEAN CELL VOLUME 86.6 fL CALC (80.0-100.0); MEAN CORPUSCULAR HGB 24.7 pG CALC (26.0-32.0); MEAN CORPUSCULAR HGB CONC 28.6 g/dL CAL (32.0-36.0); NEUT# 6.46 thou/uL (2.00-7.15); RED BLOOD COUNT 2.83 mill/uL (4.20-5.60); RED CELL DISTRI WIDTH 14.9 % (11.5-15.5)
[2021-06-09 07:47] LABS: ALBUMIN 4.4 g/dL (3.2-5.0); ALKALINE PHOSPHATASE 72 u/l (38-126); ANION GAP 16 (6-22 (CALC)); BUN 17 mg/dL (8-23); BUN/CREATININE RATIO 19 (12-20 (CALC)); CARBON DIOXIDE 20 mmol/l (22-30); CHLORIDE 110 mmol/l (95-108); CREATININE 0.9 mg/dL (0.5-1.0); GFR 60 ML/MIN (>=60 (CALC)); GFR FOR AFR.AMER. > 60 ML/MIN (>=60 (CALC)); POTASSIUM 4.2 mmol/l (3.5-5.1); SGOT/AST 26 u/l (9-36); SODIUM 141 mmol/l (137-146); TOTAL PROTEIN 7.8 g/dL (6.3-8.2)
[2021-06-09 07:51] LABS: BILIRUBIN, TOTAL 0.7 mg/dL (0.0-1.4)
[2021-06-09 08:07] LABS: ACT PARTIAL THROMBO TIME 33.2 SECONDS (20.0-32.5); PROTHROMBIN TIME 19.9 SECONDS (9.0-12.5)
--- NOTE | 2021-06-09 09:57 | NUR ---
RECEIVED REPORT FROM ROBBY APARICIO. PT WITH BLOOD INFUSING AT 75ML/HR. PT STABLE AT THIS TIME. WILL CONTINUE TO MONITOR.
--- NOTE | 2021-06-09 10:05 | NUR ---
PT ASSISTED TO BSC, SMALL BM AND URINE OUT. PT BECOMES SOB WITH ACTIVITY. PT ASSISTED BACK TO BED AND BREATHING IMPROVED WITH REST. PT PROVIDED WITH WATER TO DRINK. PT STABLE. WILL CONTINUE TO MONITOR.
[2021-06-09] MEDS ORDERED: CIPROFLOXACN500 MG PO (10:21)
[2021-06-09] MEDS ORDERED: ZITHROMAX Z-PA250 MG PO (10:22)
--- NOTE | 2021-06-09 10:45 | NUR ---
PT'S VS ASSESSED, WNL. PT'S BREATHING EVEN AND UNLABORED. BLOOD INFUSING AT 75ML/HR. PT STABLE. WILL CONTINUE TO MONITOR.
--- NOTE | 2021-06-09 11:10 | NUR ---
PT ASSISTED UP TO BSC, PT WITH SMALL LOOSE STOOL. SANCHEZ AREA CLEANSED AND ASSISTED BACK TO BED. BLOOD INFUSING AT 75ML/HR. PT STABLE. WILL CONTINUE TO MONITOR.
--- NOTE | 2021-06-09 12:00 | NUR ---
PT ASSISTED TO BSC. PT WITH URINE OUT, NO BM THIS TIME. PT BECOMES SOB WITH ACTIVITY. ASSISTED BACK TO BED. BREATHING IMPROVED WITH REST. PT STABLE. WILL CONTINUE TO MONITOR.
--- NOTE | 2021-06-09 12:44 | NUR ---
SPOKE WITH HOSPITALIST AND OK TO INCREASE BLOOD INFUSION RATE TO 125ML/HR VIA PUMP. RATE INCREASED AT THIS TIME.
--- NOTE | 2021-06-09 13:02 | NUR ---
PT UP TO BSC AND ASSISTED BACK TO BED. PT WITH BLOOD INFUSING AT 125ML/HR. PT STABLE AT THIS TIME. WILL CONTINUE TO MONITOR.
--- NOTE | 2021-06-09 13:30 | NUR ---
PT ASSISTED TO BSC, CLEAN BRIEF PLACED. PT ASSISTED BACK TO BED, BLOOD INFUSING PER ORDER. PT STABLE AT THIS TIME. WILL CONTINUE TO MONITOR.
--- NOTE | 2021-06-09 14:22 | NUR ---
PT ASSISTED TO BSC, BRIEF CHANGED. PT ASSISTED BACK TO BED. VSS. BLOOD INFUSING PER ORDER. PT WITH CALL LIGHT IN REACH. WILL CONTINUE TO MONITOR.
--- NOTE | 2021-06-09 14:27 | NUR ---
CALL PLACED TO MED/SURG TO GIVE REPORT, RN AT LUNCH WILL CALL BACK IN 30MIN.
--- NOTE | 2021-06-09 14:46 | NUR ---
PT RESTING WITH EYES CLOSED, VSS, BLOOD INFUSING PER ORDER AT 125ML/HR VIA PUMP. PT'S BREATHING IMPROVED, REMAINS ON 2L OXYGEN VIA NC. PT STABLE, AWAITING ADMISSION TO MED/SURG.
--- NOTE | 2021-06-09 15:01 | NUR ---
CALL PLACED TO MED/SURG TO GIVE REPORT-NO ANSWER
--- NOTE | 2021-06-09 15:22 | NUR ---
SBAR REPORT GIVEN TO ROBBY REYNAGA
--- NOTE | 2021-06-09 15:30 | NUR ---
PT ASSISTED OFF THE BSC AND TRANSFERRED TO WHEELCHAIR. PT TAKEN TO MED/SURG WITH TELE IN PLACE. PT'S PAPERWORK AND BELONGINGS HANDED OFF TO STAFF. PT IN STABLE CONDITION AT TIME OF ADMISSION
--- NOTE | 2021-06-09 15:50 | NUR ---
REPORT RECEIVED FROM MOHINDER IN ED, PT ARRIVED ON UNIT @ 1545 TRANSPORTED VIA W/C AND AMBULATED TO BED. ALERT AND ORIENTED X 3, ORIENTED TO ROOM AND CALL RAMIREZ, DENIES PAIN/DISCOMFORT. PRBC TRANSFUSING TO SITE IN RAC ON ARRIVAL TO UNIT, TELE MONITOR IN PLACE, CALL RAMIREZ IN REACH AND BED LOCKED IN LOWEST POSITION.
--- NOTE | 2021-06-09 19:30 | NUR ---
PATIENT RESTING IN BED ON HER RIGHT SIDE. ALERT AND ORIENTED. ABLE TO MAKE NEEDS KNOWN. ASSESSMENT COMPLETE. NO SIGNS OF DISTRESS NOTED. NO COMPLAINTS OF PAIN VOICED. CALL LIGHT AND BELONGINGS REMAIN IN REACH.
--- NOTE | 2021-06-09 23:55 | NUR ---
BED ALARM SOUNDING. PATIENT OBSERVED OUT OF BED MOVING BSC TO USE. PATIENT VOIDED. SUPERVISED PATIENT AMBULATE BACK TO BED. BED ALARM BACK IN PLACE. CALL LIGHT WITHIN REACH.
[2021-06-10] VITALS: BP 138/50
[2021-06-10 04:03] VITALS: BP 124/50
--- NOTE | 2021-06-10 04:07 | NUR ---
PATIENT RESTING IN BED. NO SIGNS OF DISTRESS NOTED. NO SIGNS OF PAIN. COUGHING AT TIMES. PATIENT GETS OUT OF BED WITHOUT USING CALL LIGHT. BED ALARM SOUNDS. CALL LIGHT AND BELONGINGS IN REACH. BED ALARM REMAINS ACTIVE.
[2021-06-10 05:26] LABS: MEAN CELL VOLUME 87.2 fL CALC (80.0-100.0); MEAN CORPUSCULAR HGB 26.6 pG CALC (26.0-32.0); MEAN CORPUSCULAR HGB CONC 30.5 g/dL CAL (32.0-36.0); RED BLOOD COUNT 3.68 mill/uL (4.20-5.60); RED CELL DISTRI WIDTH 15.3 % (11.5-15.5)
[2021-06-10 05:38] LABS: ANION GAP 11 (6-22 (CALC)); BUN 16 mg/dL (8-23); BUN/CREATININE RATIO 19 (12-20 (CALC)); CHLORIDE 107 mmol/l (95-108); CREATININE 0.9 mg/dL (0.5-1.0); GFR 60 ML/MIN (>=60 (CALC)); GFR FOR AFR.AMER. > 60 ML/MIN (>=60 (CALC)); POTASSIUM 4.2 mmol/l (3.5-5.1); SODIUM 139 mmol/l (137-146)
[2021-06-10 05:39] LABS: CARBON DIOXIDE 25 mmol/l (22-30); HEMATOCRIT 32.1 % (37.0-47.0); HEMOGLOBIN 9.8 g/dl (12.0-16.0)
--- NOTE | 2021-06-10 07:00 | NUR ---
SHIFT CHANGE REPORT, PT AWAKE ALERT AND ORIENTED RESTING IN BED, O2 @ 2L VIA NC IN PLACE, TELE MONITOR IN PLACE, NO C/O DISCOMFORT, CALL RAMIREZ IN REACH AND BED LOCKED IN LOWEST POSITION.
[2021-06-10 09:23] VITALS: BP 109/63
--- NOTE | 2021-06-10 12:38 | NUR ---
ATE MEAL AND AMBULATING TO BR AT THIS TIME, NO NEW COMPLAIN, ALL NEEDS ADDRESSED, MONITORING CONTINUES.
[2021-06-10 15:49] VITALS: BP 133/52
--- NOTE | 2021-06-10 16:37 | NUR ---
RESTING IN BED AT THIS TIME, O2 IN PLACE VIA NC, BREATHING EVEN AND NON-LABORED, CALL RAMIREZ IN REACH.
[2021-06-10 19:20] VITALS: BP 141/54
--- NOTE | 2021-06-10 19:20 | NUR ---
PATIENT RESTING IN BED QUIETLY. ASSESSMENT COMPLETE. NO SIGNS OF DISTRESS NOTED. PATIENT DOES HAVE EXERTIONAL SHORTNESS OF BREATH WHEN AMBULATING TO THE BATHROOM. SHE FORGETS TO REAPPLY HER OXYGEN. PATIENT OBSERVED COUGHING AT TIMES. CLEAR SPIT OBSERVED, PATIENT STATED, ''I THOUGHT I HAD TO THROW UP''. BED ALARM ACTIVE. PATIENT DOES NOT USE CALL LIGHT TO ASK FOR ASSISTANCE. PATIENT DOES APPEAR TO BE STEADY ON HER FEET. PATIENT WAS REMINDED TO PLEASE USE CALL LIGHT TO ASK FOR ASSISTANCE WHEN NEEDED. CALL LIGHT AND BELONGINGS REMAIN IN REACH.
[2021-06-10 23:30] VITALS: BP 115/60
--- NOTE | 2021-06-10 23:30 | NUR ---
PATIENT RESTING IN BED QUIETLY. NO COMPLAINTS VOICED AT THIS TIME. NO SIGNS OF DISTRESS NOTED. REMAINS GETTING OUT OF BED TO TAKE SELF TO BATHROOM. CALL LIGHT AND BELONGINGS REMAIN IN REACH.
[2021-06-11 03:25] VITALS: BP 102/45
--- NOTE | 2021-06-11 03:25 | NUR ---
PATIENT AMBULATING TO THE BATHROOM. NO SIGNS OF PAIN OR DISTRESS NOTED. STEADY ON HER FEET. PATIENT FIGURED OUT HOW TO SHUT OFF HER BED ALARM.
[2021-06-11 05:20] LABS: HEMATOCRIT 32.9 % (37.0-47.0); MEAN CELL VOLUME 88.2 fL CALC (80.0-100.0); MEAN CORPUSCULAR HGB 26.8 pG CALC (26.0-32.0); MEAN CORPUSCULAR HGB CONC 30.4 g/dL CAL (32.0-36.0); RED BLOOD COUNT 3.73 mill/uL (4.20-5.60); RED CELL DISTRI WIDTH 15.7 % (11.5-15.5)
[2021-06-11 05:30] LABS: ANION GAP 12 (6-22 (CALC)); BUN 15 mg/dL (8-23); BUN/CREATININE RATIO 17 (12-20 (CALC)); CARBON DIOXIDE 26 mmol/l (22-30); CHLORIDE 106 mmol/l (95-108); CREATININE 0.9 mg/dL (0.5-1.0); GFR 60 ML/MIN (>=60 (CALC)); GFR FOR AFR.AMER. > 60 ML/MIN (>=60 (CALC)); POTASSIUM 3.9 mmol/l (3.5-5.1); SODIUM 140 mmol/l (137-146)
--- NOTE | 2021-06-11 07:30 | NUR ---
Patient is screened for intervention and may benefit from PT consult is MD agrees
--- NOTE | 2021-06-11 08:00 | NUR ---
SHIFT CHANGE REPORT, PT AWAKE ALERT AND ORIENTED SITTING UP IN RECLINER, O2 @ 2L VIA NC IN PLACE, TELE MONITOR IN PLACE, NO C/O DISCOMFORT, CALL RAMIREZ IN REACH.
[2021-06-11 09:15] VITALS: BP 140/61
[2021-06-11 10:27] VITALS: BP 136/65
--- NOTE | 2021-06-11 12:47 | NUR ---
SITTING UP IN RECLNIER, INQUIRING ABOUT D/C AND ADVISED MD WILL WRITE ORDER AND NURSE WILL PROCESS IN TIMELY MANNER.
--- NOTE | 2021-06-11 15:25 | NUR ---
Discharge instructions given. Patient verbalizes understanding of same. Discharged in good condition via Wheelchair to Home with family. All belongings sent with pt.
== END 2021-06-11 15:24 | disposition home health service (06) ==
LOC: ED 07:00 → ED-I 08:29 → ED 08:43 → MS2 08:44 → ED-I 08:44 → MS2 14:50
PROVIDERS: ADMIT Internal Medicine; ATTEND Internal Medicine
PROC: 30233N1 Transfusion of Nonautologous Red Blood Cells into Peripheral Vein, Percutaneous Approach (ICD-10-PCS; principal; 2021-06-09)
PROC: 30233N1 Transfusion of Nonautologous Red Blood Cells into Peripheral Vein, Percutaneous Approach (ICD-10-PCS; 2021-06-09)
DX: D50.9 Iron deficiency anemia, unspecified (principal); N39.0 Urinary tract infection, site not specified; I13.0 Hypertensive heart and chronic kidney disease with heart failure and stage 1 through stage 4 chronic kidney disease, or unspecified chronic kidney disease; I50.32 Chronic diastolic (congestive) heart failure; E11.22 Type 2 diabetes mellitus with diabetic chronic kidney disease; N18.9 Chronic kidney disease, unspecified; I48.91 Unspecified atrial fibrillation; I25.10 Atherosclerotic heart disease of native coronary artery without angina pectoris; E78.5 Hyperlipidemia, unspecified; J44.9 Chronic obstructive pulmonary disease, unspecified; Z79.84 Long term (current) use of oral hypoglycemic drugs; Z95.1 Presence of aortocoronary bypass graft; Z87.891 Personal history of nicotine dependence; Z79.01 Long term (current) use of anticoagulants; Z95.3 Presence of xenogenic heart valve; Z86.73 Personal history of transient ischemic attack (TIA), and cerebral infarction without residual deficits; Z20.822 Contact with and (suspected) exposure to COVID-19
CPT/HCPCS: G0378; J1756; P9016

== ENCOUNTER 2021-06-17 10:07 | Emergency (ER) | payer MEDICARE, MEDICAID ==
[2021-06-17] VITALS (8 sets, daily range): BP systolic 116–142; BP diastolic 49–59
[~2021-06-17] VITALS: Ht 154.9 cm; Wt 46.0 kg
[~2021-06-17 10:07] MED LIST changes: +ZITHROMAX Z-PA250 MG PO
[2021-06-17] MEDS ORDERED: HYDROCO/APAP1 TA9 PO (12:05)
== END 2021-06-17 12:40 | disposition home or self-care (01) ==
LOC: ED 10:07
DX: S53.402A Unspecified sprain of left elbow, initial encounter (principal); E11.22 Type 2 diabetes mellitus with diabetic chronic kidney disease; I12.9 Hypertensive chronic kidney disease with stage 1 through stage 4 chronic kidney disease, or unspecified chronic kidney disease; N18.9 Chronic kidney disease, unspecified; J44.9 Chronic obstructive pulmonary disease, unspecified; E78.00 Pure hypercholesterolemia, unspecified; X50.0XXA Overexertion from strenuous movement or load, initial encounter; Y93.89 Activity, other specified; Y92.009 Unspecified place in unspecified non-institutional (private) residence as the place of occurrence of the external cause; Z95.2 Presence of prosthetic heart valve; Z79.01 Long term (current) use of anticoagulants; Z79.84 Long term (current) use of oral hypoglycemic drugs; Z86.73 Personal history of transient ischemic attack (TIA), and cerebral infarction without residual deficits; Z95.1 Presence of aortocoronary bypass graft

== ENCOUNTER 2022-03-14 11:17 | Emergency (ER) | payer OTHER, MEDICARE, MEDICAID ==
[~2022-03-14] VITALS: Ht 154.9 cm; Wt 45.4 kg
[2022-03-14 11:54] VITALS: BP 104/48
[2022-03-14 12:01] VITALS: BP 102/81
[2022-03-14] MEDS ORDERED: FLEXERIL5 M1 PO (12:01)
[2022-03-14 12:15] VITALS: BP 110/45
[2022-03-14 12:30] VITALS: BP 110/45
== END 2022-03-14 12:30 | disposition home or self-care (01) | DRG 103 ==
LOC: ED 11:17
DX: R51.9 Headache, unspecified (principal); M25.562 Pain in left knee; M25.561 Pain in right knee; V49.40XA Driver injured in collision with unspecified motor vehicles in traffic accident, initial encounter; Z79.01 Long term (current) use of anticoagulants; Z95.1 Presence of aortocoronary bypass graft; Z79.84 Long term (current) use of oral hypoglycemic drugs; Z86.73 Personal history of transient ischemic attack (TIA), and cerebral infarction without residual deficits; Z95.2 Presence of prosthetic heart valve; J44.9 Chronic obstructive pulmonary disease, unspecified; I12.9 Hypertensive chronic kidney disease with stage 1 through stage 4 chronic kidney disease, or unspecified chronic kidney disease; N18.9 Chronic kidney disease, unspecified; E11.22 Type 2 diabetes mellitus with diabetic chronic kidney disease; Z88.0 Allergy status to penicillin; M54.9 Dorsalgia, unspecified; M54.2 Cervicalgia

== ENCOUNTER 2022-08-03 12:38 | Emergency (ER) | payer MEDICARE, MEDICAID ==
[2022-08-03] VITALS (8 sets, daily range): BP systolic 103–124; BP diastolic 64–79
[~2022-08-03] VITALS: Ht 154.9 cm; Wt 47.1 kg
[~2022-08-03 12:38] MED LIST changes: +FLEXERIL5 M1 PO
[2022-08-03 13:24] LABS: BASO% 0.5 % (0-3); EOS% 0.7 % (0-8); HEMATOCRIT 29.1 % (37.0-47.0); HEMOGLOBIN 8.8 g/dl (12.0-16.0); IMMATURE GRANULOCYTES 0.2 % (0.0-5.0); LYMPH% 11.5 % (15-41); MEAN CELL VOLUME 94.2 fL CALC (80.0-100.0); MEAN CORPUSCULAR HGB 28.5 pG CALC (26.0-32.0); MEAN CORPUSCULAR HGB CONC 30.2 g/dL CAL (32.0-36.0); MONO% 5.5 % (2-13); NEUT# 4.46 thou/uL (2.00-7.15); NEUT% 81.6 % (42-76); RED BLOOD COUNT 3.09 mill/uL (4.20-5.60); RED CELL DISTRI WIDTH 13.8 % (11.5-15.5)
[2022-08-03 13:24] LABS: URINE BILIRUBIN - DIPSTICK NEGATIVE (NEGATIVE); URINE BLOOD DIPSTICK NEGATIVE (NEGATIVE); URINE COLOR YELLOW; URINE GLUCOSE - DIPSTICK 100 mg/dL (NEGATIVE); URINE KETONE NEGATIVE (NEGATIVE); URINE LEUK ESTERASE NEGATIVE (NEGATIVE); URINE PROTEIN - DIPSTICK NEGATIVE (NEG-TRACE); URINE SPECIFIC GRAVITY 1.015; URINE UROBILINOGEN - DIPSTICK 0.2 E.U./dL (0.2)
[2022-08-03 13:27] LABS: URINE NITRITE - DIPSTICK NEGATIVE (Negative)
[2022-08-03 13:43] LABS: ALBUMIN 4.4 g/dL (3.2-5.0); ALKALINE PHOSPHATASE 78 u/l (38-126); ANION GAP 13 (6-22 (CALC)); BILIRUBIN, TOTAL 0.9 mg/dL (0.02-1.3); BUN 17 mg/dL (8-23); BUN/CREATININE RATIO 17 (12-20 (CALC)); CARBON DIOXIDE 27 mmol/l (22-30); CHLORIDE 104 mmol/l (95-108); GFR FOR AFR.AMER. > 60 ML/MIN (>=60 (CALC)); GFR OTHER RACES 53 ML/MIN (>=60 (CALC)); POTASSIUM 4.2 mmol/l (3.5-5.1); SGOT/AST 29 u/l (9-36); SODIUM 139 mmol/l (137-146); TOTAL PROTEIN 7.3 g/dL (6.3-8.2)
== END 2022-08-03 16:45 | disposition home or self-care (01) ==
LOC: ED 12:38
PROVIDERS: Family Medicine
DX: D50.9 Iron deficiency anemia, unspecified (principal); D63.8 Anemia in other chronic diseases classified elsewhere; I95.1 Orthostatic hypotension; I13.0 Hypertensive heart and chronic kidney disease with heart failure and stage 1 through stage 4 chronic kidney disease, or unspecified chronic kidney disease; I50.32 Chronic diastolic (congestive) heart failure; E11.22 Type 2 diabetes mellitus with diabetic chronic kidney disease; N18.9 Chronic kidney disease, unspecified; J44.9 Chronic obstructive pulmonary disease, unspecified; E78.00 Pure hypercholesterolemia, unspecified; Z95.1 Presence of aortocoronary bypass graft; Z86.73 Personal history of transient ischemic attack (TIA), and cerebral infarction without residual deficits; Z79.84 Long term (current) use of oral hypoglycemic drugs